=== PATIENT | male | born 1980 | race Hispanic/Latino ===

== ENCOUNTER 2016-12-22 06:02 | Observation (INO) | payer OTHER ==
[~2016-12-22] VITALS: Ht 167.6 cm; Wt 54.4 kg
[~2016-12-22 06:02] MED LIST: BENTYL20 MG PO; CHANTIX1 MG PO; METHADONE HYDROC5 MG; METHADONE10 MG/5 M2 PO; PERCOCET 325 MG1 TA2 PO; PERCOCET 5-3251 EACH PO; PHENADOZ RC; PHENERGAN12.5 M1 PO; PHENERGAN25 M1 PO; PRILOSEC 20MG C20 MG PO; PRILOSEC OTC20 MG PO; PROAIR HFA8.5 GM INH; PROMETHAZINE HC25 M3 PO; PROMETHAZINE25 MG PR; REGLAN10 M1 PO; REGLAN10 MG PO; TORADOL10 MG PO; VERAPAMIL HCL40 M1
--- NOTE | 2016-12-22 06:12 | ED GENERAL ADULT ---
History of Present Illness General Chief Complaint: General Adult Stated Complaint: "+N+V-D,ABD PAIN,BODY ACHES, SINCE YESTERDAY" Source: patient Exam Limitations: no limitations Vital Signs & Intake/Output Vital Signs & Intake/Output Vital Signs Date Time Temp Pulse Resp B/P Pulse O2 O2 Flow FiO2 Ox Delivery Rate 12/22 617 99.6 84 18 138/68 97 Room Air Allergies Coded Allergies: NO KNOWN ALLERGIES (05/12/15) Triage Nurses Notes Reviewed? yes Onset: Abrupt Duration: day(s): Timing: recent history HPI: 12/22/16 6:20 AM 36-year-old male presents to the emergency department for multiple episodes of vomiting over the past 24 hours. The patient states that started yesterday. He admits to crampy abdominal pain. He says that he has a history of intermittent episodes of crampy abdominal pain and vomiting. He denies any past surgical history. He denies any drug allergies. He does not drink alcohol. He does smoke marijuana. He is in a methadone program, he did take his dose of methadone yesterday. He is on 90 mg a day. The onset of the symptoms were abrupt, the duration was 24 hours, the severity is significant; as his symptoms required him to come to the emergency department for care. (MISAEL GREY DO) Reconcile Medications Albuterol Sulfate (Proair Hfa) 8.5 GM HFA.AER.AD 2 PUF INH PRN DYSPNEA ( Reported) Dicyclomine Hydrochloride (Bentyl) 20 MG TAB 1 TAB PO TID ABDOMINAL CRAMPING Ketorolac Tromethamine (Toradol) 10 MG TAB 1 TAB PO TID PAIN Methadone HCl 10 MG/5 ML SOLUTION 90 MG PO DAILY MENTAL HEALTH (Reported) Metoclopramide HCl (Reglan) 10 MG TABLET 1 TAB PO PRN N/V (Reported) 30 minutes before meals and bedtime Omeprazole (Prilosec Otc) 20 MG TCP 1 TAB PO QDAY GASTRITIS/ABDOMINAL PAIN Omeprazole (Prilosec) 20 MG CAP 1 TAB PO DAILY ABDOMINAL PAIN OXYCODONE HCL/ACETAMINOPHEN (Percocet 5-325 MG Tablet) 325 MG/5 MG TAB 1-2 TAB PO Q4-6 PRN PRN PAIN Oxycodone HCl/Acetaminophen (Percocet 5-325 MG Tablet) 1 EACH TABLET 1 TAB PO Q4-6 PRN PAIN Promethazine HCl 25 MG TABLET 1 TAB PO Q6P PRN NAUSEA/VOMITING PROMETHAZINE HCL (Promethazine) 25 MG SUPP.RECT 1 TAB TX 4 TIMES/DAY PRN NAUSEA PROMETHAZINE HCL (Promethazine) 25 MG SUP 1 TAB TX TID PRN NAUSEA Promethazine HCl 25 MG TABLET 1 TAB PO Q6P PRN NAUSEA Promethazine HCl (Phenadoz) 25 MG SUPP.RECT 1 TAB RC Q4-6 PRN NAUSEA Promethazine Hydrochloride (Phenergan) 12.5 MG TAB 1 TAB PO Q8HR PRN NAUSEA Promethazine Hydrochloride (Phenergan) 25 MG TAB 1 TAB PO TID PRN NAUSEA Varenicline Tartrate (Chantix) 1 MG TABLET 1 TAB PO BID SMOKING CESSATION ( Reported) Verapamil Hydrochloride (Verapamil HCl) (Unknown Strength) TABLET (Unknown Dose) UNKNOWN (Reported) (RASHID BURNS,MISAEL López) Past History Travel History Traveled to [place] past 21 day No Medical History Any Pertinent Medical History? see below for history Neurological: NONE EENT: NONE Cardiovascular: NONE Respiratory: NONE Gastrointestinal: GERD, cyclical VOMITING SYNDROME Hepatic: NONE Renal: NONE Musculoskeletal: NONE Psychiatric: substance abuse Endocrine: NONE History of CDIFF: No Surgical History Surgical History: non-contributory, N Psychosocial History What is your primary language Malian Family History Hx Contributory? No (MISAEL GREY DO) Review of Systems Review of Systems Constitutional: Denies: fever. EENTM: Denies: visual changes. Respiratory: Denies: short of breath. Cardiovascular: Denies: chest pain. GI: Reports: abdominal pain, vomiting. Denies: diarrhea. Genitourinary: Reports: no symptoms. Musculoskeletal: Reports: no symptoms. Skin: Reports: no symptoms. Neurological/Psychological: Reports: no symptoms. Hematologic/Endocrine: Reports: no symptoms. (MISAEL GREY DO) Physical Exam Physical Exam General Appearance: alert, awake, anxious, moderate distress Head: atraumatic, normal appearance Eyes: Bilateral: normal appearance, PERRL, EOMI. Ears, Nose, Throat: normal ENT inspection, dry mucous membranes Neck: normal inspection, supple, full range of motion Respiratory: normal breath sounds, chest non-tender, no respiratory distress Cardiovascular: regular rate/rhythm Peripheral Pulses: 4+ radial (R), 4+ radial (L) Gastrointestinal: soft, non-tender Back: decreased range of motion Extremities: normal inspection, normal range of motion Neurologic/Psych: no motor/sensory deficits, awake, alert, oriented x 3 Skin: intact, normal color, warm/dry Core Measures ACS in differential dx? No CVA/TIA Diagnosis: No Severe Sepsis Present: No Septic Shock Present: No (MISAEL GREY DO) Progress Differential Diagnoses I considered the following diagnoses in my evaluation of the patient: [ Appendicitis, cyclic vomiting syndrome, opiate withdrawal, gastroparesis, gastritis, pancreatitis] Plan of Care: Orders Procedure Date/time Status Place in observation 12/22 940 Active RAPID VIRAL INFLUENZA A 12/22 610 Complete COMPREHENSIVE METABOLIC PANEL 12/22 610 Complete CBC WITHOUT DIFFERENTIAL 12/22 610 Complete AMYLASE 12/22 610 Complete Laboratory Tests 12/22/16 0630: Anion Gap 11, Estimated GFR > 60, BUN/Creatinine Ratio 14.4, Glucose 133 H, Calcium 10.0, Total Bilirubin 0.9, AST 23, ALT 34, Alkaline Phosphatase 82, Total Protein 6.7, Albumin 4.1, Globulin 2.6, Albumin/Globulin Ratio 1.6, Amylase 47, CBC w Diff NO MAN DIFF REQ, RBC 4.36 L, MCV 88.9, MCH 29.7, RDW 13.5, MPV 8.8, Gran % 79.5 H, Lymphocytes % 15.5 L, Monocytes % 4.8, Eosinophils % 0, Basophils % 0.2, Absolute Granulocytes 12.5 H, Absolute Lymphocytes 2.4, Absolute Monocytes 0.8 H, Absolute Eosinophils 0, Absolute Basophils 0, PUBS MCHC 33.4 Microbiology 12/22 0640 NASOPHARYN: Influenza Virus A & B Rapid Smear - COMP Initial ED EKG: none (MISAEL GREY DO) Differential Diagnoses I considered the following diagnoses in my evaluation of the patient: Comments: 12/22/2016 7:21:38 AM patient signed out to me by Dr. Grey at shift blade [employer]. 12/22/2016 9:04:16 AM I have reevaluated Sergey and he states he is feeling no better despite the fluids and to different antiemetic medications. Patient states that he has had these episodes repeatedly in the past and that home medications never seemed to help him. He has tried Zofran and Reglan and Phenergan without relief in the past. He feels that if he were to be discharged to be right back again in the emergency department based on past history. Sergey states that he is unhappy with the care provided by his current GI specialist but his father also adds that he has not sought evaluation by any other GI specialists to this point. His father states that he "always waits until the last minute" and then becomes too sick to be seen. I've discussed this case with Charlotte who is covering case management. (RASHID BURNS,MISAEL López) Departure Departure Disposition: STILL A PATIENT Condition: Stable Referrals: SAMIA TOBIAS MD (PCP/Family) Departure Forms: Customer Survey General Discharge Information Comments 12/22/16 6:30 am The was treated with IV fluids and IV Zofran. Labs have been ordered. The patient will be signed out to Dr. Hunt at 7 AM (MISAEL GREY DO) Departure Clinical Impression Primary Impression: Vomiting Qualifiers: Vomiting type: unspecified Vomiting Intractability: non-intractable Nausea presence: with nausea Qualified Code: R11.2 - Nausea with vomiting, unspecified Secondary Impressions: Abdominal pain Qualifiers: Abdominal location: generalized Qualified Code: R10.84 - Generalized abdominal pain Additional Instructions: Phenergan as needed for nausea or vomiting. Clear liquid diet and advance as tolerated. Follow-up with your primary care doctor tomorrow for reevaluation. Return if any concerns or sudden worsening. Prescriptions: Current Visit Scripts Promethazine HCl 1 TAB PO Q6P PRN NAUSEA/VOMITING #12 TAB Observation Note Spoke With: VIRGILIO BURNS,ABNER Place Patient In: Non-ED OBS Care Area Rationale for Observation: My rational for observation is as follows and is currently suffering an episode of intractable vomiting that has been unresponsive to to IV antiemetics and IV fluids. The patient continues to vomit here in the emergency department. He states that he has had poor relief with home medications in the past and fears he will end up returning to the emergency department later today. The patient has yet to establish that he can tolerate even clear liquids here in the emergency department. I must agree that he would likely return to the emergency department and would likely be in worse clinical condition given his inability to tolerate even clear liquids. It is likely that he would fail outpatient management based on past history. I feel he now requires in-hospital observation for continued IV fluids, IV antiemetics and GI consultation. (RASHID BURNS,MISAEL López) Critical Care Note Critical Care Note Critical Care Time: non-applicable (MISAEL GREY DO)
[2016-12-22 06:38] LABS: ABSOLUTE BASOPHIL COUNT 0 /CUMM (0.0-0.2); ABSOLUTE EOSINOPHIL COUNT 0 /CUMM (0.0-0.7); ABSOLUTE GRANULOCYTE CT 12.5 /CUMM (1.4-6.5); ABSOLUTE LYMPH COUNT 2.4 /CUMM (1.2-3.4); ABSOLUTE MONOCYTE COUNT 0.8 /CUMM (0.10-0.60); BASOPHIL % 0.2 % (0.0-2.0); EOSINOPHIL % 0 % (0-5); GRANULOCYTE % 79.5 % (42.2-75.2); HEMATOCRIT 38.8 % (42-52); MEAN CORPUSCULAR HGB 29.7 PG (27.0-31.0); MEAN CORPUSCULAR HGB CONC 33.4 G/DL (33.0-37.0); MEAN CORPUSCULAR VOLUME 88.9 FL (80.0-94.0); MEAN PLATELET VOLUME 8.8 FL (7.4-10.4); PLATELET COUNT 205 /CUMM (130-400); RBC DISTRIBUTION WIDTH 13.5 % (11.5-14.5); RED BLOOD CELL CT 4.36 /CUMM (4.70-6.10); WHITE BLOOD CELL COUNT 15.7 /CUMM (4.8-10.8)
[2016-12-22] MEDS ORDERED: PROMETHAZINE HC25 M3 PO (08:54)
--- NOTE | 2016-12-22 11:08 | History & Physical ---
AMANDA BURNS,AKHIL 12/22/16 1108: General Information and HPI MD Statement: I have seen and personally examined ADAN LYMAN and documented this H&P. The patient is a 36 year old M who presented with a patient stated chief complaint of []. Source of Information: patient Exam Limitations: no limitations History of Present Illness: 36 yo M with a PMH of GERD and substance abuse (oxycontin) here with c/o sharp abdominal pain, N/V/D x 2 days. Symptoms usually start in the morning and have no precipitating or aggravating factors. He smokes marijuana to relieve his nausea and to sleep. He vomits more than 100 times a day and is unable to keep anything own and stools 2-3 times a day whenever he is having symptoms which occur at least once every week and lasts for 2-3 days. Sometimes symptoms resolve on their own and other times he has to be admitted in hospital for IV meds and fluids. Vomitus is non-projectile and contains food and bile but no blood. Abdominal pain is 10/10, worse with moving relieved by laying still. Stool is watery, but does not contain blood or mucus. He has associated weakness and chills and is dehydrated but denies fever, dysuria, tenesmus or weightloss. Has not eaten raw or poorly cooked foods recently. No sick contacts or recent travel. He has had intermittent symptoms for about 10 years now and has been seeing Dr. Miranda for almost 2 years now, however he does not have a diagnosis and says he was told his stomach produces a lot of acid. He had an endoscopy and colonoscopy last year that did not reveal any cause. No known history of IBS/IBD or pancreatic insuficiency. His aunt in [facility] has similar symptoms but he does not know much about her diagnosis. Maternal Grandfather, grand and uncle had stomach cancer. Current smoker, 6 sticks per day (has been smoking for 12 years), does not drink alcohol. 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 Allergies/Medications Allergies: Coded Allergies: NO KNOWN ALLERGIES (05/12/15) Home Med list Albuterol Sulfate (Proair Hfa) 8.5 GM HFA.AER.AD 2 PUF INH PRN DYSPNEA ( Reported) Dicyclomine Hydrochloride (Bentyl) 20 MG TAB 1 TAB PO TID ABDOMINAL CRAMPING Methadone HCl 10 MG/5 ML SOLUTION 90 MG PO DAILY MENTAL HEALTH (Reported) Metoclopramide HCl (Reglan) 10 MG TABLET 1 TAB PO PRN N/V (Reported) 30 minutes before meals and bedtime Omeprazole (Prilosec) 20 MG CAP 1 TAB PO DAILY ABDOMINAL PAIN PROMETHAZINE HCL (Promethazine) 25 MG SUP 1 TAB NH TID PRN NAUSEA Promethazine HCl 25 MG TABLET 1 TAB PO Q6P PRN NAUSEA Varenicline Tartrate (Chantix) 1 MG TABLET 1 TAB PO BID SMOKING CESSATION ( Reported) Verapamil Hydrochloride (Verapamil HCl) (Unknown Strength) TABLET (Unknown Dose) UNKNOWN (Reported) Past History Travel History Traveled to [place] past 21 day No Medical History Neurological: NONE EENT: NONE Cardiovascular: NONE Respiratory: NONE Gastrointestinal: GERD, cyclical VOMITING SYNDROME Hepatic: NONE Renal: NONE Musculoskeletal: NONE Psychiatric: substance abuse Endocrine: NONE History of CDIFF: No Surgical History Surgical History: non-contributory, N Past Family/Social History Family History Relations & Conditions if any Grand father FHx: stomach cancer uncle FHx: stomach cancer Functional Ability ADLs Independent: dressing, eating, toileting, bathing. Ambulation: independent IADLs Independent: shopping, housework, finances, food prep, telephone, transportation , medication admin. Review of Systems Review of Systems Constitutional: Reports: see HPI. Exam & Diagnostic Data Last 24 Hrs of Vital Signs/I&O Vital Signs Date Time Temp Pulse Resp B/P Pulse O2 O2 Flow FiO2 Ox Delivery Rate 12/22 1002 99.8 84 18 108/68 98 Room Air 12/22 0618 99.6 84 18 138/68 97 Room Air Physical Exam General Appearance Alert, Oriented X3, Cooperative, No Acute Distress Skin tatooes on arms bilaterlly and back, no rash HEENT PERRLA, EOMI, dry mucous membranes Cardiovascular Regular Rate, Normal S1, Normal S2, No Murmurs Lungs Clear to Auscultation, Normal Air Movement Abdomen Normal Bowel Sounds, Soft, No Hepatospenomegaly, generalized tenderness Neurological Strength at 5/5 X4 Ext, Normal Tone, Sensation Intact Extremities No Edema, Normal Pulses Last 24 Hrs of Labs/Vamsi: Laboratory Tests 12/22/16 0630: Anion Gap 11, Estimated GFR > 60, BUN/Creatinine Ratio 14.4, Glucose 133 H, Calcium 10.0, Total Bilirubin 0.9, AST 23, ALT 34, Alkaline Phosphatase 82, Total Protein 6.7, Albumin 4.1, Globulin 2.6, Albumin/Globulin Ratio 1.6, Amylase 47, CBC w Diff NO MAN DIFF REQ, RBC 4.36 L, MCV 88.9, MCH 29.7, RDW 13.5, MPV 8.8, Gran % 79.5 H, Lymphocytes % 15.5 L, Monocytes % 4.8, Eosinophils % 0, Basophils % 0.2, Absolute Granulocytes 12.5 H, Absolute Lymphocytes 2.4, Absolute Monocytes 0.8 H, Absolute Eosinophils 0, Absolute Basophils 0, PUBS MCHC 33.4 Microbiology 12/22 0640 NASOPHARYN: Influenza Virus A & B Rapid Smear - COMP Assessment/Plan Assessment: 36 yo M with a PMH of GERD and substance abuse (oxycontin) here with c/o sharp abdominal pain, N/V/D x 2 days. He has had intermittent symptoms for about 10 years now and has been seeing Dr. Miranda for almost 2 years now, however he does not have a diagnosis and says he was told his stomach produces a lot of acid. He had an endoscopy and colonoscopy last year that did not reveal any cause. No known history of IBS/IBD or pancreatic insuficiency. Assessment Intractable Nausea and Vomiting-possibly cylical vomitng syndrome Abdominal Pain Plan Observe on GM Obtain a GI consult Blood culture X 2, stool ph and qualitative fats No antibiotics needed for now-watch for further elevation of WBC and fever IV tylenol, Toradol and PO tylenol for pain-In view of pt's history with Oxycontin abuse;revise as needed if these do not control pain IV promethazine IVF N/S @100cc/hr Clear fluid diet and advance as tolerated Recheck CBC, BEP in am f/u attending recommendation As Ranked By This Provider Problem List: 1. Abdominal pain Qualifiers Abdominal location: generalized Qualified Code: R10.84 - Generalized abdominal pain 2. Cyclical vomiting Core Measures/Miscellaneous Acute Coronary Syndrome ACS Diagnosis: No Cerebrovascular Accident CVA/TIA Diagnosis: No Congestive Heart Failure CHF Diagnosis: No Venous Thromboembolism VTE Risk Factors: Acute medical illness No [facility] VTE prophylaxis d/t: No contraindications No VTE Pharm Prophylaxis d/t: No contraindications VTE Diagnosis: No VTE Type: NONE VTE Confirmed by (Test): NONE Severe Sepsis Severe Sepsis Present: No Septic Shock Septic Shock Present: No Miscellaneous Documentation Attending Case Discussed With: Dr. Slater Primary Care Physician: SAMIA TOBIAS MD Patient sees these Specialists GI Level of Patient Care: General Medicine Consults Needed: Consulting Specialty: Gastroenterology Resident Review Statement Resident Statement: examined this patient Other Findings: see HPI VIRGILIO BURNS,ABNER 12/22/16 1254: Attending MD Review Statement Attending Statement Attending MD Statement: examined this patient, discuss w/resident/PA/GAS CONTROLLER, agreed w/resident/PA/GAS CONTROLLER, reviewed EMR data (avail) Attending Assessment/Plan: Seen and examined the patient in emergency room. I reviewed the history and physical done by resident. I also reviewed the prior CAT scan report for generally 2015. Patient likely has cyclical vomiting syndrome. At this point patient is unable to control his symptoms with oral medications and requires IV antiemetics and IV fluids. Therefore he'll be admitted to medical floor. Plan * No need to send stool cultures as this is unlikely to be gastritis. * Continue IV antiemetics and IV fluids * Continue methadone * Patient may benefit in future by seeing a integrated medicine specialist. * Recheck BEP tomorrow
--- NOTE | 2016-12-22 12:58 | Admission Certification ---
Admission Certification Certification Statement - As attending physician, I certify that at the time of - admission, based on clinical presentation, severity of - symptoms, need for further diagnostic testing and - therapeutic interventions, and risk of adverse outcomes - without in-hospital treatment, in my clinical assessment, - this patient requires an acute hospital stay for a minimum - of two nights or longer. I have also considered psychsocial - factors such as support system, advanced age, financial - issues, cognitive issues, and failed out-patient treatments, - past re-admission history, safety of patient, and lack of - compliance as applicable. Specific rationale supporting this admission is: Severe nausea vomiting
--- NOTE | 2016-12-22 14:21 | Cons- Gastroenterology ---
General Information and HPI Consulting Request Date of Consult: 12/22/16 Requested By: VIRGILIO BURNS,ABNER Reason for Consult: Intractable nausea and vomiting. Abdominal pain. Source of Information: patient, old records Exam Limitations: no limitations History of Present Illness: Mr. Saucedo is a 36 year old male who presented to today with reports of worsening nausea and vomiting. He has had issues with chronic intermittent intractable vomiting for many years with a previous endoscopic work that showed GERD but was otherwise unremarkable. He had been doing well off of all antisecretory meds for a few months, but over the past 2 days he has had worsening bilious vomiting without any blood. He complains of associated diffuse abdominal discomfort, but he is without any significant burning discomfort and he is also without any heartburn or dysphagia. He has some loose stool without any brbpr or melena. He has not had any sick contacts and he can' t recall eating anything which may have been improperly prepared. His symptoms are similar to his prior attacks. Since arrival to the ER he has been hemodynamically stable and afebrile. He has been given zofran and reglan with some benefit, but he felt if he was discharged he would be right back in the ER so he was admitted for observation. Allergies/Medications Allergies: Coded Allergies: NO KNOWN ALLERGIES (05/12/15) Home Med List: Albuterol Sulfate (Proair Hfa) 8.5 GM HFA.AER.AD 2 PUF INH PRN DYSPNEA ( Reported) Dicyclomine Hydrochloride (Bentyl) 20 MG TAB 1 TAB PO TID ABDOMINAL CRAMPING Methadone HCl 10 MG/5 ML SOLUTION 90 MG PO DAILY MENTAL HEALTH (Reported) Metoclopramide HCl (Reglan) 10 MG TABLET 1 TAB PO PRN N/V (Reported) 30 minutes before meals and bedtime Omeprazole (Prilosec) 20 MG CAP 1 TAB PO DAILY ABDOMINAL PAIN PROMETHAZINE HCL (Promethazine) 25 MG SUP 1 TAB RI TID PRN NAUSEA Promethazine HCl 25 MG TABLET 1 TAB PO Q6P PRN NAUSEA Varenicline Tartrate (Chantix) 1 MG TABLET 1 TAB PO BID SMOKING CESSATION ( Reported) Verapamil Hydrochloride (Verapamil HCl) (Unknown Strength) TABLET (Unknown Dose) UNKNOWN (Reported) Current Medications: Current Medications Sig/Zak Start time Last Medication Dose Route Stop Time Status Admin Acetaminophen 650 MG Q6P PRN 12/22 1230 AC PO Acetaminophen 1,000 MG Q6P PRN 12/22 1215 AC N/A 1 UNIT IV Enoxaparin Sodium 40 MG DAILY 12/22 1222 AC SC Ketorolac 15 MG Q6P PRN 12/22 1230 AC Tromethamine IV Ondansetron HCl 0 .STK-MED ONE 12/22 0639 DC .ROUTE Ondansetron HCl 4 MG ONCE ONE 12/22 0630 DC 12/22 IV 12/22 0631 0644 Promethazine HCl 25 MG Q4P PRN 12/22 1200 AC IV 12/29 1159 Promethazine HCl 0 .STK-MED ONE 12/22 0746 DC .ROUTE Promethazine HCl 25 MG ONCE ONE 12/22 0745 DC 12/22 IV 12/22 0746 0747 Sodium Chloride 1,000 ML Q10H 12/22 1200 AC 12/22 IV 1201 Sodium Chloride 1,000 ML BOLUS ONE 12/22 0615 DC 12/22 IV 12/22 0714 0644 Past History Travel History Traveled to [place] past 21 day No Medical History Blood Transfusion Hx: No Neurological: NONE EENT: NONE Cardiovascular: NONE Respiratory: NONE Gastrointestinal: GERD, cyclical VOMITING SYNDROME Hepatic: NONE Renal: NONE Musculoskeletal: NONE Psychiatric: substance abuse Endocrine: NONE Surgical History Surgical History: none, non-contributory Family History Relations & Conditions If Any: Grand father FHx: stomach cancer uncle FHx: stomach cancer Psychosocial History Smoking Status: Current Everyday Smoker Functional Ability ADLs Independent: dressing, eating, toileting, bathing. Ambulation: independent IADLs Independent: shopping, housework, finances, food prep, telephone, transportation , medication admin. Review of Systems Review of Systems Constitutional: Reports: malaise, weakness. Denies: chills, diaphoresis, fever. EENTM: Denies: no symptoms. Cardiovascular: Denies: no symptoms. Respiratory: Denies: no symptoms. GI: Reports: see HPI. Genitourinary: Denies: no symptoms. Musculoskeletal: Denies: no symptoms. Skin: Denies: no symptoms. Neurological/Psychological: Denies: no symptoms. Hematologic/Endocrine: Denies: no symptoms. Immunologic/Allergic: Denies: no symptoms. All Other Systems: Reviewed and Negative Exam & Diagnostic Data Vital Signs and I&O Vital Signs Date Time Temp Pulse Resp B/P Pulse O2 O2 Flow FiO2 Ox Delivery Rate 12/22 1243 99.0 82 18 105/54 97 Room Air 12/22 1002 99.8 84 18 108/68 98 Room Air 12/22 0618 99.6 84 18 138/68 97 Room Air Intake & Output 12/22 1600 12/22 0400 12/21 1600 12/21 0400 12/20 1600 12/20 0400 Intake Total 1100 Output Total Balance 1100 Intake, IV 1100 Patient 120 lb Weight Physical Exam General Appearance: well developed/nourished, no apparent distress, thin Head: atraumatic, normal appearance Eyes: Bilateral: normal appearance. Ears, Nose, Throat: normal pharynx, normal ENT inspection Neck: normal inspection, supple Respiratory: normal breath sounds, chest non-tender, no respiratory distress Cardiovascular: regular rate/rhythm Gastrointestinal: normal bowel sounds, soft, tenderness Rectal: deferred Back: normal inspection, normal range of motion Extremities: normal inspection, normal range of motion, no edema Neurologic/Psych: no motor/sensory deficits, awake, alert, oriented x 3 Results Pertinent Lab Results: Laboratory Tests 12/22 0630 Chemistry Sodium (137 - 145 mmol/L) 140 Potassium (3.5 - 5.1 mmol/L) 3.6 Chloride (98 - 107 mmol/L) 104 Carbon Dioxide (22 - 30 mmol/L) 24 Anion Gap (5 - 16) 11 BUN (9 - 20 mg/dL) 13 Creatinine (0.7 - 1.2 mg/dL) 0.9 Estimated GFR (>60 ml/min) > 60 BUN/Creatinine Ratio (7 - 25 %) 14.4 Glucose (65 - 99 mg/dL) 133 H Calcium (8.4 - 10.2 mg/dL) 10.0 Total Bilirubin (0.2 - 1.3 mg/dL) 0.9 AST (17 - 59 U/L) 23 ALT (21 - 72 U/L) 34 Alkaline Phosphatase (< 127 U/L) 82 Total Protein (6.3 - 8.2 g/dL) 6.7 Albumin (3.5 - 5.0 g/dL) 4.1 Globulin (1.9 - 4.2 gm/dL) 2.6 Albumin/Globulin Ratio (1.1 - 2.2 %) 1.6 Amylase (30 - 110 U/L) 47 Hematology CBC w Diff NO MAN DIFF REQ WBC (4.8 - 10.8 /CUMM) 15.7 H RBC (4.70 - 6.10 /CUMM) 4.36 L Hgb (14.0 - 18.0 G/DL) 13.0 L Hct (42 - 52 %) 38.8 L MCV (80.0 - 94.0 FL) 88.9 MCH (27.0 - 31.0 PG) 29.7 RDW (11.5 - 14.5 %) 13.5 Plt Count (130 - 400 /CUMM) 205 MPV (7.4 - 10.4 FL) 8.8 Gran % (42.2 - 75.2 %) 79.5 H Lymphocytes % (20.5 - 51.1 %) 15.5 L Monocytes % (1.7 - 9.3 %) 4.8 Eosinophils % (0 - 5 %) 0 Basophils % (0.0 - 2.0 %) 0.2 Absolute Granulocytes (1.4 - 6.5 /CUMM) 12.5 H Absolute Lymphocytes (1.2 - 3.4 /CUMM) 2.4 Absolute Monocytes (0.10 - 0.60 /CUMM) 0.8 H Absolute Eosinophils (0.0 - 0.7 /CUMM) 0 Absolute Basophils (0.0 - 0.2 /CUMM) 0 PUBS MCHC (33.0 - 37.0 G/DL) 33.4 Imaging/Other Studies: 2013: EXAM TYPE: NUC - GASTRIC EMPTYING STUDY Nuclear/gastric emptying study. History: Nausea; vomiting; weight loss. Comment: Following oral ingestion of solid meal consisting of 6 ounces Dinty Melton beef stew labeled with 500 ?Ci technetium 99m sulfur colloid anterior imaging over the abdomen was performed up to 4 hours post ingestion. Using computer-aided analysis a region of interest was drawn around the stomach and gastric emptying was determined over time. At one hour there is 52.9% gastric emptying (normal equals greater than 10%), at 2 hours there is 86% gastric emptying (normal equals greater than 60%) and at 4 hours there is 98.5% gastric emptying (normal equals greater than 90%). The T 1/2 for gastric clearance is 49 minutes (normal equals less than 100 minutes. Impression: Normal gastric emptying for solid meal. Assessment/Plan Assessment/Recommendations: Assessment: Mr. Saucedo is a 36 year old male with cyclical vomiting syndrome which I suspect is secondary to chronic marijuana use. I have followed him as an outpatient for sevearl years and he has been extesively worked up with an endoscopy in 2011 that only showed GERD and he also had an unremarkable US, HIDA scan and gastric emptying study over the years after his symptoms failed to improve with a ppi. I have discussed stopping marijuana as an outpatient with him previously and he had reported that he didn't have any benefit with stopping it for 6 weeks when he saw me in the office in November of 2015, but I question how reliable that history is. I had also given him elavil at that office visit for treatment of CVS, but it isn't clear if that had any true benefit as he doesn't really recall taking it and he hasn't followed up with me in a year. Of note, he had been doing well with reglan at that time in spite of having a negative gastric emptying study in 2012. 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 Underlying PUD or GERD is possible considering he has been off his PPI for a period of months, but his erosive disease on his EGD in 2011 was mild and he is without any significant heartburn. Recommendations: 1. Advance diet as tolerated 2. Use antiemetics as needed 3. Maintenance IVF 4. IV protonix 40mg daily for now 5. Avoid NSAIDs 6. If diet is not able to be advanced would keep NPO after midnight for a diagnostic EGD to be performed in the am, but if he symptomatically improves this can be pursued as an outpatient. I will continue to follow this patient and make further recommendations based on his clinical course, response to antacids and anti-emetics and the results of the EGD if it is to be performed tomorrow. Problem List: 1. Nausea and vomiting 2. Gastritis 3. Cyclical vomiting Copies To: SAMIA TOBIAS MD Consult Acknowledgment - Thank you for your consult request.
[2016-12-22 14:55] VITALS: BP 100/50
[2016-12-22 21:47] VITALS: BP 102/60
[2016-12-23 06:55] VITALS: BP 100/58
--- NOTE | 2016-12-23 07:34 | PN- Housestaff ---
JUSTINE BURNS,[facility] 12/23/16 0734: Subjective Follow-up For: Intractable Nausea and Vomiting Abdominal Pain Subjective: Patient was seen and examined this morning, he reported generalized abdominal pain 7/10, on and off in nature, responds to pain medication. Patient was able to tolerate clear liquid diets yesterday, was advanced to full liquid diet this morning, patient reported 1 episode of nausea that responded well to Reglan, denied vomiting, denied diarrhea, last bowel movement was on Friday normal consistency. Patient reported lightheadedness upon standing. Patient denied chest pain, shortness of breath, cough, urinary symptoms. Vital signs remained stable, afebrile, MAXIMUM TEMPERATURE for the last 24 hours 99.8 Review of Systems Constitutional: Reports: see HPI. Objective Last 24 Hrs of Vital Signs/I&O Vital Signs Date Time Temp Pulse Resp B/P Pulse O2 O2 Flow FiO2 Ox Delivery Rate 12/23 1441 98.6 75 20 110/58 98 12/23 0655 98.5 66 20 100/58 97 Room Air 12/22 2147 99.3 60 20 102/60 98 Intake & Output 12/23 1600 12/23 0800 12/23 0000 Intake Total 1020 800 450 Output Total 375 Balance 645 800 450 Intake, IV 600 800 400 Intake, Oral 420 50 Output, Urine 375 Physical Exam General Appearance: Alert, Oriented X3, Cooperative, No Acute Distress Skin: No Rashes, No Breakdown, No Significant Lesion HEENT: Atraumatic, PERRLA, EOMI, Mucous Membr. moist/pink Neck: Supple Cardiovascular: Regular Rate, Normal S1, Normal S2, No Murmurs Lungs: Clear to Auscultation, Normal Air Movement Abdomen: Normal Bowel Sounds, Soft, mild diffuse tenderness on palpation Neurological: Normal Gait, Normal Speech, Strength at 5/5 X4 Ext, Normal Tone, Sensation Intact, Cranial Nerves 3-12 NL, Reflexes 2+ Extremities: No Clubbing, No Cyanosis, No Edema, Normal Pulses Assessment/Plan Assessment: Mr. Saucedo is 36 yo M with a PMH of GERD, continue cyclic vomiting syndrome mostly secondary to chronic marijuana use following with Dr. Miranda and substance abuse methadone at ([place], [place]) presented to ED with chief complain of sharp abdominal pain, nausea, vomiting and diarrhea for 2 days. He has had these intermittent symptoms for several years, following up with Dr. Miranda, had upper endoscopy 5 years ago that revealed signs of GERD, on Prilosec 20 mg daily and Reglan, had unremarkable gastric emptying study, abdominal US and HIDA scan. Assessment and plan #Intractable Nausea and Vomiting #Abdominal Pain #Substance abuse methadone #Intractable Nausea and Vomiting #Abdominal Pain -Pain improved with pain medication acetaminophen 650 every 6 when necessary for mild pain, tramadol 50 every 6 when necessary for moderate and severe pain -Avoid NSAIDs -Diet was advanced to full liquid diet, advance diet as tolerated -Continue IV Protonix -Continue IV promethazine when necessary for nausea -Continue maintenance IV fluid normal saline 100 mL per hour -Blood culture negative so far -Repeat CBC tomorrow, on admission leukocytosis mostly due to dehydration #Substance abuse methadone -We contacted [place], [place] for information -We'll obtain urine toxicology DVT prophylaxis Lovenox Code full Diet full liquid diet Consultation GI Problem List: 1. Abdominal pain 2. Nausea & vomiting 3. Cyclical vomiting Pain Ratin Pain Location: Abdominal pain Pain Goal: Pain 4 or less Pain Plan: acetaminophen 650 every 6 when necessary for mild pain, tramadol 50 every 6 when necessary for moderate and severe pain Tomorrow's Labs & Rationales: CBC, urine toxicology DEBRA MISTRY MD 12/23/16 2133: Attending MD Review Statement Attending Statement Attending MD Statement: examined this patient, discuss w/resident/PA/WOOL SHEARING SUPERVISOR, agreed w/resident/PA/WOOL SHEARING SUPERVISOR, reviewed EMR data (avail), discussed with nursing, discussed with case mgmt, amended to note Attending Assessment/Plan: The patient was seen and discussed with house staff. Tolerating diet w/o vomiting or severe pain. Patient to be discharged to home. Plan is for EGD as outpatient with Dr. Miranda. Consider repeat gastric emptying study using newer method. May also consider CCK/Ensure Plus Stimulated hepatobiliary scan (patient states FH of GB disorders).
[2016-12-23 14:41] VITALS: BP 110/58
--- NOTE | 2016-12-23 16:59 | Patient Discharge Instructions ---
Discharge Instructions General Discharge Information You were seen/treated for: Intractable Nausea and Vomiting Special Instructions: 1. please follow up with PCP within 1 week of discharge. 2. Please follow up with DR. ARANGO within 1 week of discharge mancia endoscopy, further GI studies. Diet Recommended Diet: Regular Activity Full Activity/No Limits: Yes (as tolerated) Acute Coronary Syndrome Inclusion Criteria At DC or during hospital stay patient has or had the following: ACS DIAGNOSIS No Discharge Core Measures Meds if any: Prescribed or Continued at Discharge Meds if any: NOT Prescribed or Continued at Discharge Congestive Heart Failure Inclusion Criteria At DC or during hospital stay patient has or had the following: CHF DIAGNOSIS No Discharge Core Measures Meds if any: Prescribed or Continued at Discharge Meds if any: NOT Prescribed or Continued at Discharge Cerebrovascular accident Inclusion Criteria At DC or during hospital stay patient has or had the following: CVA/TIA Diagnosis No Discharge Core Measures Meds if any: Prescribed or Continued at Discharge Meds if any: NOT Prescribed or Continued at Discharge Venous thromboembolism Inclusion Criteria VTE Diagnosis No VTE Type NONE VTE Confirmed by (Test) NONE Discharge Core Measures - Per Current guidelines, there needs to be overlap - treatment for the first 5 days of Warfarin therapy. - If discharged on Warfarin prior to 5 days of - overlap therapy, the patient will need to be - assessed for post discharge needs including - *Post discharge parental anticoagulation - *Warfarin and/or parental anticoagulation education - *Follow up date to check INR post discharge At least 5 days overlap therapy as Inpatient No Meds if any: Prescribed or Continued at Discharge Note: Overlap Therapy is Warfarin and Anticoagulant Meds if any: NOT Prescribed or Continued at Discharge
== END 2016-12-23 21:18 ==
LOC: ENRESERVTM → ENRESERVDT → ERH 06:02 → ERHI 09:41 → 2NA 09:41 → ERHI 13:35 → 2NA 13:56
PROVIDERS: Emergency Medicine; ADMIT Hospitalist
DX: G43.A0 Cyclical vomiting, in migraine, not intractable (principal); F11.10 Opioid abuse, uncomplicated; T40.7X Poisoning by, adverse effect of and underdosing of cannabis (derivatives); D72.829 Elevated white blood cell count, unspecified; E86.0 Dehydration; R19.7 Diarrhea, unspecified
CPT/HCPCS: 80307; 82436; 87040; 87045; 87804; 87804-59; 96361; 96372; 96374; 96375; G0378; J0131; J1650; J2405; J2550

== ENCOUNTER 2018-01-22 06:14 | Emergency (ER) | payer OTHER ==
[~2018-01-22] VITALS: Ht 167.6 cm; Wt 52.2 kg
[~2018-01-22 06:14] MED LIST changes: +PHENADOZ PR
--- NOTE | 2018-01-22 06:37 | ED GI/GU/ABDOMINAL COMPLAINT ---
History of Present Illness General Chief Complaint: Nausea, Vomiting, Diarrhea Stated Complaint: ABD PAIN, NAUSEA, VOMITING, DIARRHEA X2DAYS PER PT Source: patient, family, old records Exam Limitations: no limitations Vital Signs & Intake/Output Vital Signs & Intake/Output Vital Signs Date Time Temp Pulse Resp B/P B/P Pulse O2 O2 Flow FiO2 Mean Ox Delivery Rate 01/22 0945 98.8 62 16 111/68 99 Room Air 01/22 0622 99.4 104 16 114/80 97 Room Air Reconcile Medications Albuterol Sulfate (Proair Hfa) 8.5 GM HFA.AER.AD 2 PUF INH PRN DYSPNEA ( Reported) Dicyclomine Hydrochloride (Bentyl) 20 MG TAB 1 TAB PO TID ABDOMINAL CRAMPING Methadone HCl 10 MG/5 ML SOLUTION 90 MG PO DAILY MENTAL HEALTH (Reported) Metoclopramide HCl (Reglan) 10 MG TABLET 1 TAB PO PRN N/V (Reported) 30 minutes before meals and bedtime Omeprazole (Prilosec) 20 MG CAP 1 TAB PO DAILY ABDOMINAL PAIN Promethazine HCl (Phenadoz) 25 MG SUPP.RECT 1 SUP MT Q6 PRN NAUSEA/VOMITING PROMETHAZINE HCL (Promethazine) 25 MG SUP 1 TAB MT TID PRN NAUSEA Promethazine HCl 25 MG TABLET 1 TAB PO Q6P PRN NAUSEA Varenicline Tartrate (Chantix) 1 MG TABLET 1 TAB PO BID SMOKING CESSATION ( Reported) Verapamil Hydrochloride (Verapamil HCl) (Unknown Strength) TABLET (Unknown Dose) UNKNOWN (Reported) Triage Note: 37YO MALE TO TRIAGE W/CO VOMITING ABD PAIN X 2 D. STATES HX OF CYCLIC VOMITING Triage Nurses Notes Reviewed? yes HPI: Patient presents with a two-day history of nausea vomiting and crampy abdominal pain. Similar symptoms multiple times in the past. Patient has had an extensive GI workup. Multiple ED visits and hospitalizations for same. The abdominal pain is constant for the past 2 days. It is crampy. He rates it as 10 out of 10. There is no radiation outside of the abdominal area. There are no aggravating factors. No fevers or chills. There is no diarrhea. (Natali BURNS,Nhan Dewitt) Allergies Coded Allergies: NO KNOWN ALLERGIES (NONE 01/22/18) (Ching BURNS,Aidan) Past History Travel History Traveled to [place] past 21 day No Medical History Any Pertinent Medical History? see below for history Neurological: NONE EENT: NONE Cardiovascular: NONE Respiratory: NONE Gastrointestinal: GERD, cyclical VOMITING SYNDROME Hepatic: NONE Renal: NONE Musculoskeletal: NONE Psychiatric: substance abuse Endocrine: NONE History of MRSA: No History of VRE: No History of CDIFF: No Surgical History Surgical History: non-contributory, N Psychosocial History What is your primary language Greek Tobacco Use: Current Daily Use Daily Tobacco Use Amount/Type: => 5 Cigarettes daily ETOH Use: denies use Illicit Drug Use: marijuana Family History Family History, If Any: Grand father FHx: stomach cancer uncle FHx: stomach cancer Hx Contributory? No (Natali BURNS,Nhan Dewitt) Review of Systems Review of Systems Constitutional: Reports: no symptoms. EENTM: Reports: no symptoms. Respiratory: Reports: no symptoms. Cardiovascular: Reports: no symptoms. GI: Reports: see HPI, abdominal pain, nausea, vomiting. Genitourinary: Reports: no symptoms. Musculoskeletal: Reports: no symptoms. Skin: Reports: no symptoms. Neurological/Psychological: Reports: no symptoms. Hematologic/Endocrine: Reports: no symptoms. Immunologic/Allergic: Reports: no symptoms. All Other Systems: Reviewed and Negative (Natali BURNS,Nhan Dewitt) Physical Exam Physical Exam General Appearance: well developed/nourished, alert, awake, moderate distress Head: atraumatic, normal appearance Eyes: Bilateral: PERRL, EOMI. Ears, Nose, Throat, Mouth: hearing grossly normal, DRY MUCOSA Neck: normal inspection, supple, full range of motion Respiratory: normal breath sounds, chest non-tender, no respiratory distress, lungs clear Cardiovascular: regular rate/rhythm, normal peripheral pulses Gastrointestinal: normal bowel sounds, soft, non-tender, no organomegaly Back: normal inspection, normal range of motion Extremities: normal range of motion Neurologic/Psych: no motor/sensory deficits, awake, alert, oriented x 3, normal gait, normal mood/affect Skin: intact, normal color, warm/dry Core Measures ACS in differential dx? No Sepsis Present: No Sepsis Focused Exam Completed? No (Natali BURNS,Nhan Dewitt) Progress Differential Diagnosis: CYCLICAL VOMITING SYNDROME Plan of Care: Orders Procedure Date/time Status URINE DRUGS OF ABUSE 01/22 06 Active URINALYSIS 01/22 06 Active LIPASE 01/22 06 Complete COMPREHENSIVE METABOLIC PANEL 01/22 0632 Complete CBC WITHOUT DIFFERENTIAL 01/22 06 Complete AMYLASE 01/22 0632 Complete Laboratory Tests 01/22/18 0630: Anion Gap 14, Estimated GFR > 60, BUN/Creatinine Ratio 17.5, Glucose 118 H, Calcium 10.0, Total Bilirubin 0.7, AST 21, ALT 25, Alkaline Phosphatase 84, Total Protein 7.3, Albumin 4.3, Globulin 3.0, Albumin/Globulin Ratio 1.4, Amylase 55, Lipase 35, CBC w Diff NO MAN DIFF REQ, RBC 4.55 L, MCV 88.9, MCH 30.5, MCHC 34.3, RDW 14.0, MPV 8.8, Gran % 80.1 H, Lymphocytes % 13.8 L, Monocytes % 5.8, Eosinophils % 0.1, Basophils % 0.2, Absolute Granulocytes 12.6 H, Absolute Lymphocytes 2.2, Absolute Monocytes 0.9 H, Absolute Eosinophils 0, Absolute Basophils 0 Initial ED EKG: none Hand-Off Endorsed To: Aidan Flower MD Endorsed Time: 0700 Pending: labs, other (RE-EVAL) (Natali BURNS,Nhan Dewitt) Departure Departure Condition: Stable Clinical Impression Primary Impression: Cyclical vomiting Referrals: Suzy Blanco MD (PCP/Family) Nathaniel Miranda MD Departure Forms: Customer Survey General Discharge Information (Natali BURNS,Nhan Dewitt) Departure Time of Disposition: 1158 Disposition: HOME OR SELF CARE Prescriptions: Current Visit Scripts Hyoscyamine Sulfate (Levsin-Sl) 1-2 TAB SL Q4P PRN abdominal pain #30 TAB (Aidan Flower MD)
[2018-01-22 06:49] LABS: ABSOLUTE BASOPHIL COUNT 0 /CUMM (0.0-0.2); ABSOLUTE EOSINOPHIL COUNT 0 /CUMM (0.0-0.7); ABSOLUTE GRANULOCYTE CT 12.6 /CUMM (1.4-6.5); ABSOLUTE LYMPH COUNT 2.2 /CUMM (1.2-3.4); ABSOLUTE MONOCYTE COUNT 0.9 /CUMM (0.10-0.60); BASOPHIL % 0.2 % (0.0-2.0); EOSINOPHIL % 0.1 % (0-5); GRANULOCYTE % 80.1 % (42.2-75.2); HEMATOCRIT 40.4 % (42-52); MEAN CORPUSCULAR HGB 30.5 PG (27.0-31.0); MEAN CORPUSCULAR HGB CONC 34.3 G/DL (33.0-37.0); MEAN CORPUSCULAR VOLUME 88.9 FL (80.0-94.0); MEAN PLATELET VOLUME 8.8 FL (7.4-10.4); PLATELET COUNT 258 /CUMM (130-400); RED BLOOD CELL CT 4.55 /CUMM (4.70-6.10); WHITE BLOOD CELL COUNT 15.8 /CUMM (4.8-10.8)
[2018-01-22] MEDS ORDERED: LEVSIN-SL0.125 MG SL (11:59)
[2018-01-22 12:25] VITALS: BP 112/66
== END 2018-01-22 12:26 ==
LOC: ERH 06:14
PROVIDERS: Emergency Medicine
DX: G43.A0 Cyclical vomiting, in migraine, not intractable (principal)
CPT/HCPCS: 80307; 96374; 96375; J0131; J2405; J2550; J2765

== ENCOUNTER 2018-05-21 08:42 | Observation (INO) | payer OTHER ==
[~2018-05-21] VITALS: Ht 167.6 cm; Wt 51.0 kg
[~2018-05-21 08:42] MED LIST changes: +LEVSIN-SL0.125 MG SL
[2018-05-21 10:40] LABS: ABSOLUTE BASOPHIL COUNT 0 /CUMM (0.0-0.2); ABSOLUTE EOSINOPHIL COUNT 0 /CUMM (0.0-0.7); ABSOLUTE GRANULOCYTE CT 18.8 /CUMM (1.4-6.5); ABSOLUTE MONOCYTE COUNT 0.4 /CUMM (0.10-0.60); BASOPHIL % 0.1 % (0.0-2.0); EOSINOPHIL % 0.1 % (0-5); GRANULOCYTE % 92.7 % (42.2-75.2); HEMATOCRIT 40.3 % (42-52); MEAN CORPUSCULAR HGB 30.6 PG (27.0-31.0); MEAN CORPUSCULAR HGB CONC 33.7 G/DL (33.0-37.0); MEAN CORPUSCULAR VOLUME 90.8 FL (80.0-94.0); MEAN PLATELET VOLUME 9.4 FL (7.4-10.4); PLATELET COUNT 225 /CUMM (130-400); RBC DISTRIBUTION WIDTH 13.8 % (11.5-14.5); RED BLOOD CELL CT 4.44 /CUMM (4.70-6.10); WHITE BLOOD CELL COUNT 20.2 /CUMM (4.8-10.8)
--- NOTE | 2018-05-21 11:25 | ED GI/GU/ABDOMINAL COMPLAINT ---
History of Present Illness General Chief Complaint: Abdominal Pain/Flank Pain Stated Complaint: ABDP,MA; PAIN, VOMITING Source: patient, family, old records Exam Limitations: no limitations Vital Signs & Intake/Output Vital Signs & Intake/Output Vital Signs Date Time Temp Pulse Resp B/P B/P Pulse O2 O2 Flow FiO2 Mean Ox Delivery Rate 05/21 2304 99.4 89 18 100/40 98 Room Air 05/21 2134 99.5 90 16 98/55 97 Room Air 05/21 2054 100.8 05/21 1803 100.1 05/21 1704 101.3 05/21 1656 101.3 98 132/59 05/21 1353 100.0 101 15 122/57 96 Room Air Room Air 05/21 1139 Room Air Room Air 05/21 1139 97.8 78 15 123/67 98 Room Air Room Air 05/21 0855 96.5 73 15 121/75 99 Room Air Room Air Allergies Coded Allergies: No Known Allergies (05/21/18) Reconcile Medications Albuterol Sulfate (Proair Hfa) 8.5 GM HFA.AER.AD 2 PUF INH PRN DYSPNEA ( Reported) Hyoscyamine Sulfate (Levsin-Sl) 0.125 MG TAB.SUBL 1-2 TAB SL Q4P PRN abdominal pain Methadone HCl 10 MG/5 ML SOLUTION 90 MG PO DAILY MENTAL HEALTH (Reported) Metoclopramide HCl (Reglan) 10 MG TABLET 1 TAB PO PRN N/V (Reported) 30 minutes before meals and bedtime Promethazine HCl (Phenadoz) 25 MG SUPP.RECT 1 SUP NM Q6 PRN NAUSEA/VOMITING Promethazine HCl 25 MG TABLET 1 TAB PO Q6P PRN NAUSEA Varenicline Tartrate (Chantix) 1 MG TABLET 1 TAB PO BID SMOKING CESSATION ( Reported) Verapamil Hydrochloride (Verapamil HCl) (Unknown Strength) TABLET (Unknown Dose) UNKNOWN (Reported) Triage Note: PT TO ED FOR C/C OF DIFFUSE ABD PAIN SINCE YESTERDAY WITH NAUSEA AND VOMITING. PT ACTIVELY WRETCHING IN TRIAGE, ONLY SALIVA NOTED IN EMESIS BASIN. HX OF CYCLIC VOMITING SYNDROME. TOOK REGLAN THIS MORNING WITHOUT RELIEF. Triage Nurses Notes Reviewed? yes Onset: Gradual Duration: day(s): Timing: recent history Quality/Severity: moderate Location: generalized abdomen HPI: 37-year-old male with history of cyclic vomiting presents to emergency department complaining of nausea and vomiting 2 days. Patient states that he has been vomiting several times throughout the day, nonbilious, nonbloody. Patient also reports a few episodes of nonbloody diarrhea. He has generalized abdominal pains associated with his symptoms. He is not tolerating PO. Patient has seen vice president of software engineering, Dr. Miranda, for these symptoms. He has Phenergan and Reglan at home which he tried taking however his symptoms persisted. Patient has history of the same symptoms in the past, he was last seen here a few months ago and states that today's symptoms and pain are the same. The patient reports chills. He denies fevers, changes in diet. (Pili Ahmadi) Past History Travel History Traveled to [place] past 21 day No Medical History Any Pertinent Medical History? see below for history Neurological: NONE EENT: NONE Cardiovascular: NONE Respiratory: NONE Gastrointestinal: GERD, cyclical VOMITING SYNDROME Hepatic: NONE Renal: NONE Musculoskeletal: NONE Psychiatric: substance abuse Endocrine: NONE History of MRSA: No History of VRE: No History of CDIFF: No Surgical History Surgical History: non-contributory, N Psychosocial History What is your primary language Hungarian Tobacco Use: Current Daily Use Daily Tobacco Use Amount/Type: => 5 Cigarettes daily ETOH Use: denies use Illicit Drug Use: denies illicit drug use Family History Family History, If Any: Grand father FHx: stomach cancer uncle FHx: stomach cancer Hx Contributory? No (Pili Ahmadi) Review of Systems Review of Systems Constitutional: Reports: see HPI. EENTM: Reports: no symptoms. Respiratory: Reports: no symptoms. Cardiovascular: Reports: no symptoms. GI: Reports: see HPI. Genitourinary: Reports: no symptoms. Musculoskeletal: Reports: no symptoms. Skin: Reports: no symptoms. Neurological/Psychological: Reports: no symptoms. Hematologic/Endocrine: Reports: no symptoms. Immunologic/Allergic: Reports: no symptoms. All Other Systems: Reviewed and Negative (Pili Ahmadi) Physical Exam Physical Exam General Appearance: well developed/nourished, no apparent distress, alert, awake Head: atraumatic, normal appearance Eyes: Bilateral: normal appearance. Ears, Nose, Throat, Mouth: hearing grossly normal Neck: normal inspection, supple, full range of motion Respiratory: normal breath sounds, no respiratory distress, lungs clear Cardiovascular: regular rate/rhythm Gastrointestinal: normal bowel sounds, soft, no organomegaly, tenderness through out, active wretching Back: normal inspection, normal range of motion Extremities: normal range of motion Neurologic/Psych: awake, alert, oriented x 3 Skin: intact, normal color, warm/dry Core Measures ACS in differential dx? No Sepsis Present: No Sepsis Focused Exam Completed? No (Love BRADLEY,Pili Ochoa) Progress Differential Diagnosis: appendicitis, bowel obstruction, gastritis, hernia, inflamm bowel dis, peptic ulcer, PUD/GERD, SBO, cyclic vomiting syndrome Plan of Care: Orders Procedure Date/time Status Nothing by Mouth 05/22 B Active Vital Signs 05/21 2300 Active Teach/Educate 05/21 2300 Active Pain Treatment and Response 05/21 2300 Active Nutritional Intake, Monitor 05/21 2300 Active Isolation 05/21 2300 Active Intake & Output 05/21 2300 Active Patient Care Conference 05/21 2300 Active Activity/Ambulation 05/21 2300 Active Patient Data 05/[address] in observation 05/21 2037 Active ED Holding Orders 05/21 2037 Active Vital Signs 05/21 2037 Active Intake & Output 05/21 2037 Active Code Status 05/21 2037 Active BLOOD CULTURE 05/21 2036 Active LACTIC ACID 05/21 2036 Complete URINALYSIS 05/21 0920 Complete LIPASE 05/21 0920 Complete LACTIC ACID 05/21 09 Complete COMPREHENSIVE METABOLIC PANEL 05/21 09 Complete CBC WITHOUT DIFFERENTIAL 05/21 09 Complete Laboratory Tests 05/21/18 2058: Lactic Acid 0.6 L 05/21/18 1705: Urine Color YEL, Urine Clarity CLEAR, Urine pH 7.5, Ur Specific Welda 1.015, Urine Protein NEG, Urine Ketones 40 H, Urine Nitrite NEG, Urine Bilirubin NEG, Urine Urobilinogen 0.2, Ur Leukocyte Esterase NEG, Ur Microscopic EXAM NOT REQUIRED, Urine Hemoglobin NEG, Urine Glucose NEG 05/21/18 1220: Lactic Acid Cancelled 05/21/18 1024: Anion Gap 10, Estimated GFR > 60, BUN/Creatinine Ratio 13.8, Glucose 114 H, Lactic Acid 1.0, Calcium 9.8, Total Bilirubin 0.5, AST 28, ALT 35, Alkaline Phosphatase 82, Total Protein 6.8, Albumin 4.1, Globulin 2.7, Albumin/Globulin Ratio 1.5, Lipase 18 L, CBC w Diff MAN DIFF ORDERED, RBC 4.44 L, MCV 90.8, MCH 30.6, MCHC 33.7, RDW 13.8, MPV 9.4, Gran % 92.7 H, Lymphocytes % 5.1 L, Monocytes % 2.0, Eosinophils % 0.1, Basophils % 0.1, Absolute Granulocytes 18.8 H, Absolute Lymphocytes 1.0 L, Absolute Monocytes 0.4, Absolute Eosinophils 0, Absolute Basophils 0, Platelet Estimate ADEQUATE, Normocytic RBCs VERIFIED, Normochromic RBCs VERIFIED Microbiology 05/21 2106 BLOOD: Blood Culture - RECD 05/21 2058 BLOOD: Blood Culture - RECD CT imaging shows stable granulomas of lungs. No intra-abdominal pathology to explain patient's current symptoms. Patient has leukocytosis of 20 however has baseline leukocytosis per previous labs. Patient has received IV Zofran, Phenergan, Reglan and fluids. He is tolerating PO now. Patient does not feel ready to go home yet however has been sleeping in stretcher for about 2 hours Signed out to Tomas Luna MD pending further IV fluids. Diagnostic Imaging: Viewed by Me: CT Scan. Discussed w/RAD: CT Scan. Radiology Impression: PATIENT: ADAN LYMAN PRESENT AGE: 37 PATIENT ACCOUNT NO: [id number] : 79 LOCATION: [facility] ORDERING PHYSICIAN: Pili BRADLEY SERVICE DATE: 05/21/18-9703 EXAM TYPE: CAT - CT ABD & PELVIS W IV CONTRAST EXAMINATION: CT ABDOMEN AND PELVIS WITH CONTRAST CLINICAL INFORMATION: Nausea, vomiting, diarrhea, leukocytosis, fever. Rule out appendicitis, colitis, small bowel obstruction. COMPARISON: CT scan of the abdomen and pelvis dated 10/06/2015, 11/28/2014 and older exams dating back to 12/25. TECHNIQUE: Multidetector CT volumetric acquisition of the abdomen and pelvis was performed after the administration of 95 and mL of intravenous Optiray 320. The data set was reformatted in the sagittal and coronal planes and reviewed on an independent workstation. DLP: 245.47 mGy-cm. FINDINGS: LOWER CHEST: Bilateral calcified granulomas are again seen in the lungs, similar to prior CT scan of the chest from 04/16/2017. Lung bases are otherwise unremarkable. LIVER, GALLBLADDER, BILIARY TREE: Liver normal size and attenuation. No focal cystic or solid mass or intra-or extrahepatic ductal dilatation. Hepatic and portal veins patent. Gallbladder partially distended and within normal limits. PANCREAS: Normal. No ductal dilatation, mass, or surrounding stranding. SPLEEN: Normal size. Small calcified granuloma is seen in the spleen. Splenic vein patent. ADRENAL GLANDS AND KIDNEYS: Adrenal glands normal. Kidneys bilaterally symmetric in size and function. No focal mass, hydronephrosis, nephrolithiasis or perinephric stranding. URETERS AND BLADDER: Ureters decompressed and within normal limits. Bladder partially distended and within normal limits. PELVIC ORGANS: Unremarkable. GASTROINTESTINAL TRACT: The cecum is in the right mid flank. Small and large bowel loops decompressed and unremarkable. No evidence of colitis or small bowel obstruction. Appendix is retrocecal in location and is normal. LYMPHOVASCULAR STRUCTURES: Abdominal aorta normal in caliber. No periaortic collections. No abdominal or pelvic adenopathy or free fluid collection. BONES: Schmorl's node and limbus vertebral body is seen at the anterior superior margin of L4. IMPRESSION: 1. No acute intra- abdominal or pelvic process seen. Specifically, no evidence of appendicitis, colitis of small bowel obstruction. 2. Bilateral calcified granulomas in the lungs and calcified granuloma in the spleen. DICTATED BY: Marimar Castillo MD DATE/TIME DICTATED:05/21/181427 ORDER TRACER:GENEVA DATE/TIME TRANSCRIBED:05/21/181427 CONFIDENTIAL, DO NOT COPY WITHOUT APPROPRIATE AUTHORIZATION. <Electronically signed in Other Vendor System> SIGNED BY: Marimar Castillo MD 05/21/18 1442 Initial ED EKG: none Hand-Off Endorsed To: Tomas Anna MD Endorsed Time: 1820 Pending: other (IV fluids) (Love BRADLEY,Pili Ochoa) Comments: Patient signed out to me by KIRK at 7 PM. Patient with nausea/vomiting/diarrhea for the past 24 hours and history of cyclical vomiting syndrome and current marijuana use followed by vice president of software engineering Dr. Miranda. Patient has had multiple ED evaluations over the recent years for similar symptoms. During these evaluations he was treated with fluids, antiemetics and found to have leukocytosis with low-grade fever. Patient was febrile to 101.3 and has failed to defervesce Zambrano with intravenous acetaminophen. He has leukocytosis to >[address] abdomen/pelvis demonstrating no acute pathology. Patient does not feel any clinical improvement with the current treatment including fluids, antiemetics, and acetaminophen. Clinically patient meets SIRS/sepsis of unknown origin criteria. Blood cultures are to be drawn and patient is to be placed under observation on the general medicine floor for antiemetics, intravenous fluids, and gastroenterology consultation. (Tomas Anna MD) Departure Departure Disposition: STILL A PATIENT Condition: Stable Clinical Impression Primary Impression: Nausea vomiting and diarrhea Referrals: Nhan Lechuga MD (PCP/Family) Additional Instructions: Continue your nausea medications as prescribed. Follow-up with your GI doctor. Return if worsening symptoms or concerns. Please note that there might be incidental findings in your evaluation that are unrelated to the current emergency department visit. Please notify your primary care doctor about this emergency department visit in order to obtain and review all of the testing performed so that these incidental findings can be monitored as needed. If you had an x-ray performed, please understand that some fractures may not be seen on the initial set of x-rays. If your symptoms persist you might need a repeat set of x-rays to check for such a fracture. If you had a laceration evaluated, please understand that foreign bodies such as glass or wood may not be visible to the naked eye or on plain x-rays. If the wound becomes red, swollen, increasingly more painful or if there is any drainage from the wound, please have it reevaluated by a physician for the possibility of a retained foreign body. If you're unable to follow up as outlined in the discharge instructions please return to the emergency department. Thank you for choosing the [facility] Emergency Department for your care. It was a pleasure to serve you today. Departure Forms: Customer Survey General Discharge Information (Love BRADLEY,Pili Ochoa) Observation Note Spoke With: Clint Aranda MD Rationale for Observation: My rational for observation is as follows: * Nausea/vomiting/diarrhea * Intravenous fluids/antiemetics * Gastroenterology consultation (Tomas Anna MD) Resident Co-Sign Statement Statement: ED Attending supervision documentation- I saw and evaluated the patient. I have also reviewed all the pertinent lab results and diagnostic results. I agree with the findings and the plan of care as documented in the Resident's documentation. x I have reviewed the ED Record and agree with the Resident's documentation. [] Additions or exceptions (if any) to the Resident's note and plan are summarized below: [] (Ching BURNS,Aidan) Critical Care Note Critical Care Note Critical Care Time: 30-74 min (Shoshana BURNS,Tomas)
--- NOTE | 2018-05-21 14:42 | CT SCAN REPORT ---
EXAMINATION: CT ABDOMEN AND PELVIS WITH CONTRAST CLINICAL INFORMATION: Nausea, vomiting, diarrhea, leukocytosis, fever. Rule out appendicitis, colitis, small bowel obstruction. COMPARISON: CT scan of the abdomen and pelvis dated 10/06/2015, 11/28/2014 and older exams dating back to 12/25/2009. TECHNIQUE: Multidetector CT volumetric acquisition of the abdomen and pelvis was performed after the administration of 95 and mL of intravenous Optiray 320. The data set was reformatted in the sagittal and coronal planes and reviewed on an independent workstation. DLP: 245.47 mGy-cm. FINDINGS: LOWER CHEST: Bilateral calcified granulomas are again seen in the lungs, similar to prior CT scan of the chest from 04/16/2017. Lung bases are otherwise unremarkable. LIVER, GALLBLADDER, BILIARY TREE: Liver normal size and attenuation. No focal cystic or solid mass or intra-or extrahepatic ductal dilatation. Hepatic and portal veins patent. Gallbladder partially distended and within normal limits. PANCREAS: Normal. No ductal dilatation, mass, or surrounding stranding. SPLEEN: Normal size. Small calcified granuloma is seen in the spleen. Splenic vein patent. ADRENAL GLANDS AND KIDNEYS: Adrenal glands normal. Kidneys bilaterally symmetric in size and function. No focal mass, hydronephrosis, nephrolithiasis or perinephric stranding. URETERS AND BLADDER: Ureters decompressed and within normal limits. Bladder partially distended and within normal limits. PELVIC ORGANS: Unremarkable. GASTROINTESTINAL TRACT: The cecum is in the right mid flank. Small and large bowel loops decompressed and unremarkable. No evidence of colitis or small bowel obstruction. Appendix is retrocecal in location and is normal. LYMPHOVASCULAR STRUCTURES: Abdominal aorta normal in caliber. No periaortic collections. No abdominal or pelvic adenopathy or free fluid collection. BONES: Schmorl's node and limbus vertebral body is seen at the anterior superior margin of L4. IMPRESSION: 1. No acute intra-abdominal or pelvic process seen. Specifically, no evidence of appendicitis, colitis of small bowel obstruction. 2. Bilateral calcified granulomas in the lungs and calcified granuloma in the spleen.
[2018-05-21 23:04] VITALS: BP 100/40
--- NOTE | 2018-05-22 01:10 | History & Physical ---
SahilSara davis 05/22/18 0109: General Information and HPI MD Statement: I have seen and personally examined ADAN LYMAN and documented this H&P. The patient is a 37 year old M who presented with a patient stated chief complaint of []. Source of Information: patient Exam Limitations: no limitations History of Present Illness: 37 year old male with PMH GERD, cyclic vomiting syndrome (followed by Dr. Miranda) presenting with two day history of nausea/vomiting/diarrhea. He reports vomiting every 5-10mintues. He has had 3episodes of diarrhea with the last being last night. He states he ate dinner (home made spa[employer]; no one else sick) and then woke up at 03:30 with n/v/d. He reports associated diffuse abdominal pain. He has reglan and phenergan at home. He was unable to keep the medicine down so had no relief. He is unable to tolerate anything PO including water. He reports decreased appetite. He denies any recent antibiotic use in the past 3 months. Social history significant for daily marijuana use. Allergies/Medications Allergies: Coded Allergies: No Known Allergies (05/21/18) Home Med list Albuterol Sulfate (Proair Hfa) 8.5 GM HFA.AER.AD 2 PUF INH PRN DYSPNEA ( Reported) Hyoscyamine Sulfate (Levsin-Sl) 0.125 MG TAB.SUBL 1-2 TAB SL Q4P PRN abdominal pain Methadone HCl 10 MG/5 ML SOLUTION 90 MG PO DAILY MENTAL HEALTH (Reported) Metoclopramide HCl (Reglan) 10 MG TABLET 1 TAB PO PRN N/V (Reported) 30 minutes before meals and bedtime Promethazine HCl (Phenadoz) 25 MG SUPP.RECT 1 SUP DC Q6 PRN NAUSEA/VOMITING Promethazine HCl 25 MG TABLET 1 TAB PO Q6P PRN NAUSEA Varenicline Tartrate (Chantix) 1 MG TABLET 1 TAB PO BID SMOKING CESSATION ( Reported) Verapamil Hydrochloride (Verapamil HCl) (Unknown Strength) TABLET (Unknown Dose) UNKNOWN (Reported) Past History Travel History Traveled to [place] past 21 day No Medical History Blood Transfusion Hx: No Neurological: NONE EENT: NONE Cardiovascular: NONE Respiratory: NONE Gastrointestinal: GERD, cyclical VOMITING SYNDROME Hepatic: NONE Renal: NONE Musculoskeletal: NONE Psychiatric: substance abuse Endocrine: NONE Blood Disorders: NONE Cancer(s): NONE NEGATIVE ASSEMBLER/Reproductive: NONE History of MRSA: No History of VRE: No History of CDIFF: No Isolation History: Standard Surgical History Surgical History: non-contributory, N Past Family/Social History Family History Relations & Conditions if any Grand father FHx: stomach cancer uncle FHx: stomach cancer Psychosocial History Where do you live? Home Services at Home: None Smoking Status: Current Everyday Smoker ETOH Use: denies use Illicit Drug Use: denies illicit drug use Functional Ability ADLs Independent: dressing, eating, toileting, bathing. Ambulation: independent IADLs Independent: shopping, housework, finances, food prep, telephone, transportation , medication admin. 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 EENTM: Reports: no symptoms. Cardiovascular: Reports: no symptoms. Respiratory: Reports: no symptoms. GI: Reports: abdominal pain, diarrhea, nausea, vomiting. Denies: bloody stool. Genitourinary: Reports: no symptoms. Musculoskeletal: Reports: no symptoms. Skin: Reports: no symptoms. Neurological/Psychological: Reports: no symptoms. Exam & Diagnostic Data Last 24 Hrs of Vital Signs/I&O Vital Signs Date Time Temp Pulse Resp B/P B/P Pulse O2 O2 Flow FiO2 Mean Ox Delivery Rate 05/21 2304 99.4 89 18 100/40 98 Room Air 05/21 2134 99.5 90 16 98/55 97 Room Air 05/21 2054 100.8 05/21 1803 100.1 05/21 1704 101.3 05/21 1656 101.3 98 132/59 05/21 1353 100.0 101 15 122/57 96 Room Air Room Air 05/21 1139 Room Air Room Air 05/21 1139 97.8 78 15 123/67 98 Room Air Room Air 05/21 0855 96.5 73 15 121/75 99 Room Air Room Air Intake & Output 05/22 0800 05/22 0000 05/21 1600 Intake Total 1000 2000 Output Total Balance 1000 2000 Intake, IV 1000 2000 Patient 112 lb 120 lb Weight Weight Reported by Patient Measurement Method Physical Exam General Appearance Alert, Oriented X3, Cooperative, Mild Distress Skin multiple tattoos Skin Temp/Moisture Exam: Warm/Dry HEENT Atraumatic, PERRLA Neck Supple Cardiovascular Normal S1, Normal S2, No Murmurs, tachycardic Lungs Clear to Auscultation Abdomen Normal Bowel Sounds, diffusely tender to palpation Extremities No Edema, Normal Pulses Assessment/Plan Assessment: 37 year old male with PMH GERD, cyclic vomiting syndrome presenting with two day history of nausea/vomiting/diarrhea. He reports vomiting every 5-10mintues. He has had 3episodes of diarrhea with the last being last night. ED work up significant for leukocytosis 20.3. Patient to be admitted for further care of the following: Problem List: 1. Vomiting with history of cyclic vomiting syndrome 2. Leukocytosis 3. Diarrhea Admission Data: VS T100.0 (Tmax 101.3) HR 101 RR15 BP122/57 Sat 96%RA ED IVF: 3L NS Labs: WBC 20.3 H/H 13.6/40.3 Plt 223 Na 139 K 3.9 BUN/Cr 11/0.8 UA: ketones + CTabd/pelv: IMPRESSION: 1. No acute intra-abdominal or pelvic process seen. Specifically, no evidence of appendicitis, colitis of small bowel obstruction. 2. Bilateral calcified granulomas in the lungs and calcified granuloma in the spleen. #Vomiting and h/o cyclic vomiting syndrome-possibly 2/2 daily marijuana use vs viral infection vs bacterial infection. Discussed with patient need for cessation of marijuana use to see if that resolves his sx of cyclic vomiting syndrome -IVF: NS @75cc/hr -Diet as tolerated #Leukocytosis-20.3 is significantly high and suspicious for C-diff infection. Patient denies recent abx hx. -stool culture and c-diff antigen -continue to monitor #Diarrhea-infectious vs viral gastroenteritis -C-diff and stool culture pending -monitor lytes and replete as necessary -IVF hydration #Chronic medical problems -Continue home meds including Methadone (recieves from [place] in [place]) DVT prophylaxis: heparin 5000units sub cu/ALPS/ambulation Code status: full code As Ranked By This Provider Problem List: 1. Nausea and vomiting 2. Cyclical vomiting 3. Diarrhea 4. Leukocytosis Core Measures/Misc (06/22) Acute Coronary Syndrome ACS Diagnosis: No Congestive Heart Failure Congestive Heart Failure Diagnosis No Cerebrovascular Accident CVA/TIA Diagnosis: No VTE (View Protocol) VTE Risk Factors Acute Medical Illness No Mechanical VTE Prophylaxis d/t N/A MechProphylax Ordered No VTE Pharm Prophylaxis d/t NA PharmProphylax ordered Sepsis (View protocol) Sepsis Present: No If YES complete Sepsis Event Note If YES complete Sepsis Event Note [place] 05/22/18 0109: Core Measures/Misc (06/22) Sepsis (View protocol) If YES complete Sepsis Event Note If YES complete Sepsis Event Note Resident Review Statement Resident Statement: examined this patient, discussed with manager of internal, agreed with manager of internal, discussed with family, reviewed EMR data (avail), discussed with nursing , discussed with case mgmt, reviewed images, amended to note Other Findings: This is a 37-year-old male with past medical history significant for COPD, cyclic vomiting syndrome, substance abuse, smoker, gastroparesis, chronic nausea and vomiting and abdominal pain presented to the emergency room for worsening acute on chronic nausea, vomiting, abdominal pain for 2 days. Off note patient has history of cyclic vomiting syndrome, follows Dr. Montalvo checkroom chief as an outpatient. Patient states that he has been vomiting several times for last 2 days, nonbilious, nonbloody. Also reports few episodes of nonbloody diarrhea. He has generalized abdominal pain associated with nausea and vomiting. He is not tolerating p.o. He also reports that Phenergan and Reglan are not helping with his pain/vomiting. All the symptoms were going on for last few months. Denies any sick contact or travel history. Review of systems was negative except for above. He is current smoker, alcoholic.. Reports illicit drug abuse marijuana. He is on methadone 90 daily Vitals T-max 101.3, heart rate 100, respiratory rate 15, blood pressure 120/70, saturating at 96 on room air Pertinent labs WBC 20.2, hemoglobin 13, hematocrit 40, platelets 225 Sodium 139, potassium 3.9, BUN 11 and creatinine 0.8 Lactic acid normal Lipase normal Received sodium chloride, Tylenol, Reglan, Phenergan, Zofran in the emergency room. CAT scan abdomen and pelvis 1. No acute intra-abdominal or pelvic process seen. Specifically, no evidence of appendicitis, colitis of small bowel obstruction. 2. Bilateral calcified granulomas in the lungs and calcified granuloma in the spleen. ---- 1. Cyclic vomiting syndrome Patient presented with acute on chronic worsening of abdominal pain, nausea, vomiting for 2 days. Of note he has cyclic vomiting syndrome, follows Dr. Miranda checkroom chief. Patient also reports he has been taking marijuana daily. He has multiple visits to the emergency room for similar complaints. * Cyclic vomiting syndrome most likely from chronic marijuana usage * Observation in general medicine * Monitor vitals every shift * Monitor for fever, leukocytosis * Continue IV fluids * Pain management Tylenol and Percocet * Antiemetics and Reglan, Phenergan as needed for nausea and vomiting * Hyoscyamine for abdominal pain * Gastroenterology consult in the a.m. 2. Positive SIRS criteria Patient presented with T-max 101.3, tachycardia, leukocytosis 20,000. He has no source of infection so far. CAT scan abdomen was done which showed no intra- abdominal process, no colitis. * Monitor for fever, leukocytosis * Follow-up 2 sets of blood cultures * Follow-up C. difficile given diarrhea * Follow-up stool cultures * Tylenol for fever COPD continue albuterol Smoker nicotine patch ordered Opiate dependence on methadone 90 mg daily Full code Regular diet DVT prophylaxis subcu heparin Pain pathway ordered
[2018-05-22 06:50] VITALS: BP 129/82
[2018-05-22 08:06] LABS: ABSOLUTE BASOPHIL COUNT 0 /CUMM (0.0-0.2); ABSOLUTE EOSINOPHIL COUNT 0 /CUMM (0.0-0.7); ABSOLUTE GRANULOCYTE CT 8.1 /CUMM (1.4-6.5); ABSOLUTE LYMPH COUNT 2.3 /CUMM (1.2-3.4); ABSOLUTE MONOCYTE COUNT 0.6 /CUMM (0.10-0.60); BASOPHIL % 0.2 % (0.0-2.0); EOSINOPHIL % 0.1 % (0-5); GRANULOCYTE % 73.3 % (42.2-75.2); HEMATOCRIT 35.7 % (42-52); MEAN CORPUSCULAR HGB 30.9 PG (27.0-31.0); MEAN CORPUSCULAR VOLUME 90.8 FL (80.0-94.0); MEAN PLATELET VOLUME 9.6 FL (7.4-10.4); PLATELET COUNT 196 /CUMM (130-400); RBC DISTRIBUTION WIDTH 13.6 % (11.5-14.5); RED BLOOD CELL CT 3.94 /CUMM (4.70-6.10)
--- NOTE | 2018-05-22 08:22 | PN-Observation ---
See Addendum Observation Note Observation Note _ I have personally examined ADAN LYMAN. him disposition is uncertain at this time. Before a determination can be made, he requires continued observation for the following reasons [N/V]. Assessment/Plan Medical Assessment: CTabd/pelv: 1. No acute intra-abdominal or pelvic process seen. Specifically, no evidence of appendicitis, colitis of small bowel obstruction. 2. Bilateral calcified granulomas in the lungs and calcified granuloma in the spleen. 37 YO M with PMH GERD, cyclic vomiting syndrome presenting with two day history of nausea/vomiting/diarrhea. He reports vomiting every 5-10mintues. He has had 3episodes of diarrhea with the last being last night. ED work up significant for leukocytosis 20.3. Patient admitted to general medicine. #Vomiting and history of cyclic vomiting syndrome- likely 2/2 daily marijuana use vs viral gastroenteritis -Discussed with patient need for cessation of marijuana use to see if that resolves his sx of cyclic vomiting syndrome -Metoclopramide and Zofran as needed for n/v -IVF: NS @75cc/hr, dc'd -Advance diet as tolerated; Full liquid currently -Observe overnight, if patient tolerates PO intake consider for discharge tomorrow #Leukocytosis with associated diarrhea -WBC initially 20.3 is significantly high and suspicious for C-diff infection; patient denies recent abx hx. but reported episodes of diarrhea -Stool Cx. and C.Diff -WBC trend down to 11.0, continue to follow #Chronic medical problems -Continue home meds including Methadone 90 mg (receives from [facility] in [place]) DVT PPx. Full Code Problem List: 1. Nausea and vomiting 2. Cyclical vomiting 3. Diarrhea 4. Leukocytosis Discharge Plan Discharge Disposition: home Subjective Follow-up For: Nausea & Vomiting Hx. of Cyclic Vomiting Syndrome Leukocytosis Diarrhea Subjective: Low grade fevers overnight. Patient is sitting in bed in mild distress and reports diffuse abdominal pain. Patient reports episodes of diarrhea yesterday but none this morning. Patient states he smokes marijunana daily and has seen Dr. Miranda in the past for GI workup. Patient states he is not currently nauseous but had episodes of n/v yesterday. Patient reports chills but otherwise denies any chest pain, palpitations, shortness of breath, fatigue and dizziness. Review of Systems Constitutional: Reports: see HPI. Objective Last 24 Hrs of Vital Signs/I&O Vital Signs Date Time Temp Pulse Resp B/P B/P Pulse O2 O2 Flow FiO2 Mean Ox Delivery Rate 05/22 1400 99.8 66 20 120/70 99 Room Air 05/22 0650 99.2 82 20 129/82 94 Room Air 05/21 2304 99.4 89 18 100/40 98 Room Air 05/21 2134 99.5 90 16 98/55 97 Room Air 05/21 2054 100.8 05/21 1803 100.1 05/21 1704 101.3 05/21 1656 101.3 98 132/59 Intake & Output 05/22 1600 05/22 0800 05/22 0000 Intake Total 2624 908 4946 Output Total 950 0 Balance 121 806 3810 Intake, IV 827 896 9875 Intake, Oral 750 480 Number 0 Bowel Movements Output, 0 Emesis Output, Urine 950 Patient 112 lb Weight Physical Exam General Appearance: Alert, Oriented X3, Cooperative, No Acute Distress Skin: No Rashes, No Breakdown HEENT: Atraumatic Neck: Supple, No JVD Cardiovascular: Regular Rate, Normal S1, Normal S2 Lungs: Clear to Auscultation Abdomen: Soft, diffuse tenderness noted on palpation Neurological: Normal Speech Extremities: No Edema, Normal Pulses
--- NOTE | 2018-05-22 11:45 | Patient Discharge Instructions ---
Discharge Instructions General Discharge Information You were seen/treated for: Cyclic Vomiting Syndrome Diarrhea You had these procedures: CT ABD/PELVIS Watch for these problems: If you experience any sx. of recurrent nausea, vomiting, diarrhea, abdominal pain, and/or fevers please follow up with your PCP. Special Instructions: Please follow up with your PCP in one week. Please follow up with your GI specialist within a week. Please continue to take your home medications as required. Diet Continue normal diet: Yes Recommended Diet: Regular Activity Full Activity/No Limits: No Activity Self Limited: Yes Acute Coronary Syndrome Inclusion Criteria At DC or during hospital stay patient has or had the following: ACS DIAGNOSIS No Discharge Core Measures Meds if any: Prescribed or Continued at Discharge Meds if any: NOT Prescribed or Continued at Discharge Congestive Heart Failure Inclusion Criteria At DC or during hospital stay patient has or had the following: CHF DIAGNOSIS No Discharge Core Measures Meds if any: Prescribed or Continued at Discharge Meds if any: NOT Prescribed or Continued at Discharge Cerebrovascular accident Inclusion Criteria At DC or during hospital stay patient has or had the following: CVA/TIA Diagnosis No Discharge Core Measures Meds if any: Prescribed or Continued at Discharge Meds if any: NOT Prescribed or Continued at Discharge Venous thromboembolism Inclusion Criteria VTE Diagnosis No VTE Type NONE VTE Confirmed by (Test) NONE Discharge Core Measures - Per Current guidelines, there needs to be overlap - treatment for the first 5 days of Warfarin therapy. - If discharged on Warfarin prior to 5 days of - overlap therapy, the patient will need to be - assessed for post discharge needs including - *Post discharge parental anticoagulation - *Warfarin and/or parental anticoagulation education - *Follow up date to check INR post discharge At least 5 days overlap therapy as Inpatient No Meds if any: Prescribed or Continued at Discharge Note: Overlap Therapy is Warfarin and Anticoagulant Meds if any: NOT Prescribed or Continued at Discharge
--- NOTE | 2018-05-22 13:53 | Cons- Gastroenterology ---
General Information and HPI Consulting Request Date of Consult: 05/22/18 Requested By: Brian García MD Reason for Consult: 1. Nausea and vomiting 2. Leukocytosis 3. Upper abdominal discomfort Source of Information: patient, Electronic Medical Record History of Present Illness: Patient is a 37-year-old male with a past medical history of nausea and vomiting , felt to be related to cyclic vomiting syndrome. He has been followed by Dr. Doni Miranda who is done 2 endoscopies in the past which showed mild, LA grade a esophagitis. Biopsies were negative for H. pylori. He also has a history significant for daily marijuana use. Patient was in his usual state of health when he was awakened from sleep with nausea and vomiting and loose diarrheal stools. He had been unable to take either Phenergan or Reglan which he has at home and reports that he was vomiting every 5 minutes. He has had no melena nor bright red blood per rectum and denies hematemesis. He has had no fever nor shaking chills. He reports that he does have some upper abdominal pain which she attributes to the repeated episodes of vomiting. Mr. Saucedo feels that this episode is like his other episodes of cyclic vomiting with the exception that it is more severe. No one else at home is sick. He has had no unusual food outside the home to eat. Since admission to the [facility] last night he is feeling more comfortable. He is able to take liquids and to eat some fruit. He has remained afebrile and his white blood cell count which was 20,000 on admission has declined to 11. Allergies/Medications Allergies: Coded Allergies: No Known Allergies (05/21/18) Home Med List: Albuterol Sulfate (Proair Hfa) 8.5 GM HFA.AER.AD 2 PUF INH PRN DYSPNEA ( Reported) Hyoscyamine Sulfate (Levsin-Sl) 0.125 MG TAB.SUBL 1-2 TAB SL Q4P PRN abdominal pain Methadone HCl 10 MG/5 ML SOLUTION 90 MG PO DAILY MENTAL HEALTH (Reported) Metoclopramide HCl (Reglan) 10 MG TABLET 1 TAB PO PRN N/V (Reported) 30 minutes before meals and bedtime Promethazine HCl (Phenadoz) 25 MG SUPP.RECT 1 SUP RI Q6 PRN NAUSEA/VOMITING Promethazine HCl 25 MG TABLET 1 TAB PO Q6P PRN NAUSEA Varenicline Tartrate (Chantix) 1 MG TABLET 1 TAB PO BID SMOKING CESSATION ( Reported) Verapamil Hydrochloride (Verapamil HCl) (Unknown Strength) TABLET (Unknown Dose) UNKNOWN (Reported) Current Medications: Current Medications Sig/Zak Start time Last Medication Dose Route Stop Time Status Admin Acetaminophen 650 MG Q6P PRN 05/21 2315 AC PO Acetaminophen 1,000 MG Q6P PRN 05/21 2315 AC IV Acetaminophen 0 .STK-MED ONE 05/21 1702 DC PO Acetaminophen 650 MG ONCE ONE 05/21 1700 DC 05/21 PO 05/21 1701 1704 Acetaminophen 0 .STK-MED ONE 05/21 170 DC PO Albuterol Sulfate 2 PUF Q4P PRN 05/22 09 AC INH Heparin Sodium 5,000 UNIT Q8 05/22 0600 AC 05/22 (Porcine) SC 1328 Hyoscyamine 0.125 MG Q4-6 PRN PRN 05/21 2315 AC SL Methadone HCl 90 MG DAILY 05/22 0900 DC PO Methadone HCl 90 MG DAILY 05/22 0900 AC 05/22 PO 0901 Methadone HCl 0 .STK-MED ONE 05/22 0900 DC PO Metoclopramide HCl 10 MG TIDAC/HS PRN 05/22 1045 AC PO Metoclopramide HCl 10 MG Q6PRN PRN 05/21 2315 DC PO Nicotine 21 MG DAILY 05/22 0900 AC TOP Ondansetron HCl 4 MG Q8P PRN 05/21 2330 AC IV Oxycodone/ 0 .STK-MED ONE 05/21 2355 DC Acetaminophen PO Oxycodone/ 1 TAB Q6P PRN 05/21 2315 AC 05/22 Acetaminophen PO 0002 Promethazine HCl 25 MG TIDAC/HS PRN 05/22 1034 AC PO 05/29 1033 Promethazine HCl 25 MG Q6P PRN 05/21 2315 DC 05/22 PO 05/28 2314 0957 Sodium Chloride 1,000 ML Q13H 05/21 2315 AC 05/22 IV 05/23 0114 1241 Sodium Chloride 1,000 ML BOLUS ONE 05/21 1800 DC 05/21 IV 05/21 1859 1803 Past History Travel History Traveled to [place] past 21 day No Medical History Blood Transfusion Hx: No Neurological: NONE EENT: NONE Cardiovascular: NONE Respiratory: NONE Gastrointestinal: GERD, cyclical VOMITING SYNDROME Hepatic: NONE Renal: NONE Musculoskeletal: NONE Psychiatric: substance abuse Endocrine: NONE Blood Disorders: NONE Cancer(s): NONE 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 Home Services at Home: None Smoking Status: Current Everyday Smoker ETOH Use: denies use Illicit Drug Use: denies illicit drug use Functional Ability ADLs Independent: dressing, eating, toileting, bathing. Ambulation: independent IADLs Independent: shopping, housework, finances, food prep, telephone, transportation , medication admin. 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 EENTM: Reports: no symptoms. Cardiovascular: Reports: no symptoms. Respiratory: Reports: no symptoms. GI: Reports: see HPI. Genitourinary: Reports: no symptoms. Musculoskeletal: Reports: no symptoms. Skin: Reports: no symptoms. Neurological/Psychological: Reports: no symptoms. Hematologic/Endocrine: Reports: no symptoms. Exam & Diagnostic Data Vital Signs and I&O Vital Signs Date Time Temp Pulse Resp B/P B/P Pulse O2 O2 Flow FiO2 Mean Ox Delivery Rate 05/22 0650 99.2 82 20 129/82 94 Room Air 05/21 2304 99.4 89 18 100/40 98 Room Air 05/21 2134 99.5 90 16 98/55 97 Room Air 05/21 2054 100.8 05/21 1803 100.1 05/21 1704 101.3 05/21 1656 101.3 98 132/59 05/21 1353 100.0 101 15 122/57 96 Room Air Room Air Intake & Output 05/22 1600 05/22 0400 05/21 1600 05/21 0400 05/20 1600 05/20 0400 Intake Total 930 1000 2000 Output Total 0 Balance 930 1000 2000 Intake, IV 450 1000 2000 Intake, Oral 480 Number 0 Bowel Movements Output, 0 Emesis Patient 112 lb 120 lb Weight Weight Reported by Patient Measurement Method Physical Exam General Appearance: well developed/nourished, no apparent distress, comfortable Head: atraumatic, normal appearance Eyes: Bilateral: normal appearance. Ears, Nose, Throat: hearing grossly normal Neck: normal inspection, supple, full range of motion Respiratory: normal breath sounds, chest non-tender, no respiratory distress, quiet respiration, lungs clear Cardiovascular: regular rate/rhythm, Normal S1 and S2, without Rub, Murmur, or Gallop. Gastrointestinal: normal bowel sounds, soft, mild upper abdominal tenderness, without rebound or guarding. Extremities: no edema Neurologic/Psych: awake, alert, oriented x 3 Cranial Nerves: Cranial nerves II-XII grossly intact. Skin: intact, normal color, warm/dry Results Pertinent Lab Results: Laboratory Tests 05/22 05/21 0640 2058 Chemistry Sodium (137 - 145 mmol/L) 134 L Potassium (3.5 - 5.1 mmol/L) 4.0 Chloride (98 - 107 mmol/L) 105 Carbon Dioxide (22 - 30 mmol/L) 24 Anion Gap (5 - 16) 5 BUN (9 - 20 mg/dL) 11 Creatinine (0.7 - 1.2 mg/dL) 0.8 Estimated GFR (>60 ml/min) > 60 BUN/Creatinine Ratio (7 - 25 %) 13.8 Lactic Acid (0.7 - 2.1 mmol/L) 0.6 L Hematology CBC w Diff NO MAN DIFF REQ WBC (4.8 - 10.8 /CUMM) 11.0 H RBC (4.70 - 6.10 /CUMM) 3.94 L Hgb (14.0 - 18.0 G/DL) 12.1 L Hct (42 - 52 %) 35.7 L MCV (80.0 - 94.0 FL) 90.8 MCH (27.0 - 31.0 PG) 30.9 MCHC (33.0 - 37.0 G/DL) 34.0 RDW (11.5 - 14.5 %) 13.6 Plt Count (130 - 400 /CUMM) 196 MPV (7.4 - 10.4 FL) 9.6 Gran % (42.2 - 75.2 %) 73.3 Lymphocytes % (20.5 - 51.1 %) 20.6 Monocytes % (1.7 - 9.3 %) 5.8 Eosinophils % (0 - 5 %) 0.1 Basophils % (0.0 - 2.0 %) 0.2 Absolute Granulocytes (1.4 - 6.5 /CUMM) 8.1 H Absolute Lymphocytes (1.2 - 3.4 /CUMM) 2.3 Absolute Monocytes (0.10 - 0.60 /CUMM) 0.6 Absolute Eosinophils (0.0 - 0.7 /CUMM) 0 Absolute Basophils (0.0 - 0.2 /CUMM) 0 05/21 05/21 1705 1220 Chemistry Lactic Acid Cancelled Urines Urine Color (YEL,AMB,STR) YEL Urine Clarity (CLEAR) CLEAR Urine pH (5.0 - 8.0) 7.5 Ur Specific [place] (1.001 - 1.035) 1.015 Urine Protein (NEG,<30 MG/DL) NEG Urine Ketones (NEG) 40 H Urine Nitrite (NEG) NEG Urine Bilirubin (NEG) NEG Urine Urobilinogen (0.1 - 1.0 EU/dl) 0.2 Ur Leukocyte Esterase (NEG) NEG Ur Microscopic EXAM NOT REQUIRED Urine Hemoglobin (NEG) NEG Urine Glucose (N MG/DL) NEG 05/21 1024 Chemistry Sodium (137 - 145 mmol/L) 139 Potassium (3.5 - 5.1 mmol/L) 3.9 Chloride (98 - 107 mmol/L) 104 Carbon Dioxide (22 - 30 mmol/L) 25 Anion Gap (5 - 16) 10 BUN (9 - 20 mg/dL) 11 Creatinine (0.7 - 1.2 mg/dL) 0.8 Estimated GFR (>60 ml/min) > 60 BUN/Creatinine Ratio (7 - 25 %) 13.8 Glucose (65 - 99 mg/dL) 114 H Lactic Acid (0.7 - 2.1 mmol/L) 1.0 Calcium (8.4 - 10.2 mg/dL) 9.8 Total Bilirubin (0.2 - 1.3 mg/dL) 0.5 AST (17 - 59 U/L) 28 ALT (21 - 72 U/L) 35 Alkaline Phosphatase (< 127 U/L) 82 Total Protein (6.3 - 8.2 g/dL) 6.8 Albumin (3.5 - 5.0 g/dL) 4.1 Globulin (1.9 - 4.2 gm/dL) 2.7 Albumin/Globulin Ratio (1.1 - 2.2 %) 1.5 Lipase (23 - 300 U/L) 18 L Hematology CBC w Diff MAN DIFF ORDERED WBC (4.8 - 10.8 /CUMM) 20.2 H RBC (4.70 - 6.10 /CUMM) 4.44 L Hgb (14.0 - 18.0 G/DL) 13.6 L Hct (42 - 52 %) 40.3 L MCV (80.0 - 94.0 FL) 90.8 MCH (27.0 - 31.0 PG) 30.6 MCHC (33.0 - 37.0 G/DL) 33.7 RDW (11.5 - 14.5 %) 13.8 Plt Count (130 - 400 /CUMM) 225 MPV (7.4 - 10.4 FL) 9.4 Gran % (42.2 - 75.2 %) 92.7 H Lymphocytes % (20.5 - 51.1 %) 5.1 L Monocytes % (1.7 - 9.3 %) 2.0 Eosinophils % (0 - 5 %) 0.1 Basophils % (0.0 - 2.0 %) 0.1 Absolute Granulocytes (1.4 - 6.5 /CUMM) 18.8 H Absolute Lymphocytes (1.2 - 3.4 /CUMM) 1.0 L Absolute Monocytes (0.10 - 0.60 /CUMM) 0.4 Absolute Eosinophils (0.0 - 0.7 /CUMM) 0 Absolute Basophils (0.0 - 0.2 /CUMM) 0 Platelet Estimate (ADEQUATE) ADEQUATE Normocytic RBCs VERIFIED Normochromic RBCs VERIFIED Assessment/Plan Assessment/Recommendations: ASSESSMENT: 1. Cyclic Vomiting Syndrome 2. Leukocytosis -- resolved after hydration 3. Marijuana Use 4. Dehydration -- resolved RECOMMENDATIONS: 1. Observe overnight 2. If patient able to take PO consider discharge in a.m. 3. Patient to resume normal home medications as presribed by Dr. Miranda. Consult Acknowledgment - Thank you for your consult request.
[2018-05-22 14:00] VITALS: BP 120/70
[2018-05-22 21:00] VITALS: BP 110/80
[2018-05-23 07:04] VITALS: BP 100/70
[2018-05-23 08:34] LABS: ABSOLUTE BASOPHIL COUNT 0 /CUMM (0.0-0.2); ABSOLUTE EOSINOPHIL COUNT 0.1 /CUMM (0.0-0.7); ABSOLUTE GRANULOCYTE CT 5.3 /CUMM (1.4-6.5); ABSOLUTE LYMPH COUNT 3.5 /CUMM (1.2-3.4); ABSOLUTE MONOCYTE COUNT 0.8 /CUMM (0.10-0.60); BASOPHIL % 0.5 % (0.0-2.0); EOSINOPHIL % 0.9 % (0-5); GRANULOCYTE % 54.5 % (42.2-75.2); HEMATOCRIT 35.8 % (42-52); MEAN CORPUSCULAR HGB 30.7 PG (27.0-31.0); MEAN CORPUSCULAR HGB CONC 33.8 G/DL (33.0-37.0); MEAN CORPUSCULAR VOLUME 90.9 FL (80.0-94.0); MEAN PLATELET VOLUME 9.2 FL (7.4-10.4); PLATELET COUNT 187 /CUMM (130-400); RBC DISTRIBUTION WIDTH 13.8 % (11.5-14.5); RED BLOOD CELL CT 3.94 /CUMM (4.70-6.10); WHITE BLOOD CELL COUNT 9.6 /CUMM (4.8-10.8)
--- NOTE | 2018-05-23 15:07 | PN-Observation ---
Stas Mancilla 05/23/18 1503: Observation Note Observation Note _ I have personally examined ADAN LYMAN. him disposition is uncertain at this time. Before a determination can be made, he requires continued observation for the following reasons [N/V]. Assessment/Plan Medical Assessment: CTabd/pelv: 1. No acute intra-abdominal or pelvic process seen. Specifically, no evidence of appendicitis, colitis of small bowel obstruction. 2. Bilateral calcified granulomas in the lungs and calcified granuloma in the spleen. 37 YO M with PMH GERD, cyclic vomiting syndrome presenting with two day history of nausea/vomiting/diarrhea. He reports vomiting every 5-10mintues. He has had 3episodes of diarrhea with the last being last night. ED work up significant for leukocytosis 20.3. Patient admitted to general medicine. His condition has improved and is ready to be discharged. #Vomiting and history of cyclic vomiting syndrome- likely 2/2 daily marijuana use vs viral gastroenteritis -Discussed with patient need for cessation of marijuana use to see if that resolves his sx of cyclic vomiting syndrome -Metoclopramide and Zofran as needed for n/v -IVF: NS @75cc/hr, dc'd -Advance diet as tolerated; Full liquid currently -Observe overnight, if patient tolerates PO intake consider for discharge tomorrow #Leukocytosis with associated diarrhea -WBC initially 20.3 is significantly high and suspicious for C-diff infection; patient denies recent abx hx. but reported episodes of diarrhea -Stool Cx. and C.Diff -WBC trend down to 11.0, continue to follow #Chronic medical problems -Continue home meds including Methadone 90 mg (receives from [facility] in [place]) DVT PPx. Full Code Problem List: 1. Nausea and vomiting 2. Cyclical vomiting 3. Diarrhea 4. Leukocytosis Subjective Follow-up For: Nausea & Vomiting Hx. of Cyclic Vomiting Syndrome Leukocytosis Diarrhea Subjective: I saw the patient while he was living. He had normal gait, normal speech, no acute distress. No major complaints was reported by the nurse. Review of Systems Constitutional: Reports: see HPI. Objective Last 24 Hrs of Vital Signs/I&O Vital Signs Date Time Temp Pulse Resp B/P B/P Pulse O2 O2 Flow FiO2 Mean Ox Delivery Rate 05/23 0704 98.2 72 18 100/70 97 05/22 2100 99.8 61 18 110/80 98 Room Air Intake & Output 05/23 1600 05/23 0800 05/23 0000 Intake Total 495 1005 Output Total Balance 495 1005 Intake, IV 375 525 Intake, Oral 120 480 Number 1 Bowel Movements Physical Exam General Appearance: Alert, Oriented X3, Cooperative Skin: No Rashes Sepsis Skin Exam (color): Normal for Ethnicity HEENT: Atraumatic Neurological: Normal Gait, Normal Speech [place] 05/23/18 1611: Attending MD Review Statement Attending Statement Attending MD Statement: examined this patient, discuss w/resident/PA/WIRE WORKER, agreed w/resident/PA/WIRE WORKER, reviewed EMR data (avail) Attending Assessment/Plan: Pt will be dced home in stable condition. tolerating diet . no more vomiting episodes.
== END 2018-05-23 14:00 ==
LOC: ERH 08:42 → ERHI 20:37 → 2NB 20:37 → ENRESERV 22:14 → ENTRNSPT 22:34 → EDTRNSPTSTS 22:43 → EDTRNSPT 22:43 → 2NB 22:49 → CMPTRNSPT 22:53 → 2NB 05-22 08:16 → ENPENDDIS 05-23 14:04
PROVIDERS: Hospitalist; Physician Assistant
DX: K31.89 Other diseases of stomach and duodenum (principal); R19.7 Diarrhea, unspecified; F17.200 Nicotine dependence, unspecified, uncomplicated; K21.9 Gastro-esophageal reflux disease without esophagitis; F12.90 Cannabis use, unspecified, uncomplicated; D72.829 Elevated white blood cell count, unspecified; R11.10 Vomiting, unspecified; F11.20 Opioid dependence, uncomplicated; J44.9 Chronic obstructive pulmonary disease, unspecified; E86.0 Dehydration
CPT/HCPCS: 36592; 74177; 81003; 82436; 87015; 87040; 87045; 87899; 87899-59; 96361; 96372; 96374; 96375; 99291; G0378; J1644; J2405; J2550; J2765; J3490